=== PATIENT | female | born 1955 | race Caucasian/White ===

== ENCOUNTER 2022-02-21 22:52 | Emergency (ER) | payer MEDICARE, BC ==
[2022-02-21 23:39] VITALS: BP 143/64; PULSE 88
== END 2022-02-21 23:26 | disposition home or self-care (01) ==
LOC: VM.ED 22:52
DX: S63.602A Unspecified sprain of left thumb, initial encounter (principal); E78.00 Pure hypercholesterolemia, unspecified; E11.9 Type 2 diabetes mellitus without complications; E03.9 Hypothyroidism, unspecified; I10 Essential (primary) hypertension; Z79.4 Long term (current) use of insulin; Z79.899 Other long term (current) drug therapy; X50.9XXA Other and unspecified overexertion or strenuous movements or postures, initial encounter
CPT/HCPCS: 73120-LT; 99283; 99283-25

== ENCOUNTER 2022-03-27 13:29 | Emergency (ER) | payer MEDICARE, BC ==
[2022-03-27] MEDS ORDERED: Lidocaine 1% 30 ML SDV INJECT ONE (13:33)
[2022-03-27 13:41] VITALS: BP 126/52; PULSE 84
== END 2022-03-27 15:02 | disposition home or self-care (01) ==
LOC: VM.ED 13:29
DX: S01.01XA Laceration without foreign body of scalp, initial encounter (principal); E78.00 Pure hypercholesterolemia, unspecified; E03.9 Hypothyroidism, unspecified; I10 Essential (primary) hypertension; E11.9 Type 2 diabetes mellitus without complications; Z88.8 Allergy status to other drugs, medicaments and biological substances; Z79.4 Long term (current) use of insulin; Z79.82 Long term (current) use of aspirin; Z79.899 Other long term (current) drug therapy; W19.XXXA Unspecified fall, initial encounter
CPT/HCPCS: 12002; 70450; 99283

== ENCOUNTER 2023-06-22 01:11 | Inpatient (IN) | payer MEDICARE, BC ==
[2023-06-22] MEDS ORDERED: Miconazole 2% Top Powder 45 GM Container TOP ONE (01:45)
[2023-06-22] MEDS ORDERED: Acetaminophen/HYDROcodone 325-10 MG Tab PO ONE (01:59)
[2023-06-22] MEDS ORDERED: Docusate Sodium 100 MG Cap PO PRN (03:54)
[2023-06-22] MEDS ORDERED: SEMAGLUTIDE 0.25 MG/0.4 ML SQ SCH (04:00)
[2023-06-22 04:24] LABS: BASOPHILS PERCENT AUTO 0.2 % (0.2-1.2); EOSINOPHILS ABSOLUTE AUTO 0.1 x10^3/uL (0.0-0.5); EOSINOPHILS PERCENT AUTO 0.5 % (0.0-4.0); HEMATOCRIT 38.4 % (33.0-47.0); HEMOGLOBIN 12.1 g/dL (12.0-16.0); IMMATURE GRAN ABSOLUTE AUTO 0.01 x10^3/uL (0.00-0.07); LYMPHOCYTES PERCENT AUTO 5.1 % (25.0-50.0); MEAN CORPUSCULAR HEMOGLOBIN 29.7 pg (26.0-32.0); MEAN CORPUSCULAR HGB CONC 31.5 g/dL (32.0-36.0); MEAN CORPUSCULAR VOLUME 94.1 fL (78.0-93.0); MONOCYTES ABSOLUTE AUTO 0.8 x10^3/uL (0.0-0.8); MONOCYTES PERCENT AUTO 8.3 % (2.0-11.0); NEUTROPHILS ABSOLUTE AUTO 7.9 x10^3/uL (1.8-7.7); NEUTROPHILS PERCENT AUTO 85.8 % (50.0-80.0); PLATELET COUNT,PLT 243 x10^3/uL (130-400); RED BLOOD CELL COUNT 4.08 x10^6/uL (4.00-5.50); WHITE BLOOD CELL COUNT,WBC 9.3 x10^3/uL (4.0-10.0)
[2023-06-22 04:41] LABS: LYMPHOCYTES ABSOLUTE AUTO 0.5 x10^3/uL (1.0-4.8)
[2023-06-22 04:44] LABS: A/G RATIO 0.64; ALBUMIN 2.8 g/dL (3.4-5.0); BILIRUBIN TOTAL 0.9 mg/dL (0.2-1.0); CALCIUM 8.8 mg/dL (8.5-10.1); CREATININE 1.2 mg/dL (0.55-1.02); POTASSIUM,K 3.7 mmol/L (3.5-5.1); PROTEIN TOTAL,TP 7.2 g/dL (6.4-8.2)
[2023-06-22 04:51] LABS: ANION GAP 14.7 mmol/L (5-15)
[2023-06-22 04:53] LABS: INR 0.9 (0.9-1.1); PROTHROMBIN TIME 10.1 SEC (9.5-12.2)
[2023-06-22 06:16] LABS: APPEARANCE,URINE CLEAR (CLEAR); BILIRUBIN,URINE NEGATIVE (NEGATIVE); COLOR,URINE YELLOW (YELLOW); GLUCOSE,URINE NEGATIVE (NEGATIVE); KETONES,URINE NEGATIVE (NEGATIVE); LEUKOCYTE ESTERASE,URINE NEGATIVE (NEGATIVE); NITRITE,URINE POSITIVE (NEGATIVE); OCCULT BLOOD,URINE SMALL (NEGATIVE); PH,URINE 5.5 (5.0-8.0); PROTEIN,URINE 30 mg/dL (NEGATIVE); UROBILINOGEN,URINE 0.2 EU/dL (0.2)
[2023-06-22 06:25] LABS: RBC,URINE 0-5 /HPF (NOT SEEN)
[2023-06-22 06:26] LABS: BACTERIA,URINE MANY /HPF (NOT SEEN); MUCUS,URINE NOT SEEN /LPF (NOT SEEN); SQUAMOUS EPITHELIAL CELLS,UR RARE /HPF (NOT SEEN)
[2023-06-22] MEDS ORDERED: Sodium Chloride 0.9% 10 ML Syringe FLUSH PRN (07:00)
[2023-06-22] MEDS ORDERED: cefTRIAXone 2 GM Vial IVPUSH ONE (07:02)
[2023-06-22] MEDS ORDERED: Sodium Chloride 0.9% 1,000 ML IV SCH (07:15)
[2023-06-22] MEDS: Aspirin 81 MG Tab.Chew PO SCH (08:14)
[2023-06-22] MEDS: Acetaminophen/HYDROcodone 325-10 MG Tab PO PRN ×2 (08:15→20:26)
[2023-06-22] MEDS: Lisinopril 20 MG Tab PO SCH (08:16)
[2023-06-22] MEDS: Levothyroxine 88 MCG Tab PO SCH (08:16)
[2023-06-22] MEDS: Insulin Glarg,Human.Rec.Analog 100 Unit/ML 10 ML Vial SUBCUT SCH (08:18)
[2023-06-22] MEDS ORDERED: Hydrochlorothiazide 12.5 MG Cap PO SCH (09:00)
[2023-06-22] MEDS ORDERED: Rosuvastatin 20 MG Tab PO SCH (09:00)
[2023-06-22] MEDS: cefTRIAXone 1 GM Vial IVPUSH SCH (10:23)
[2023-06-22] MEDS: Enoxaparin 40 MG/0.4 ML Syringe SUBCUT SCH (10:42)
[2023-06-22] MEDS: Nystatin Crm 30 GM Tube TOP SCH ×2 (10:43→20:36)
[2023-06-22] MEDS: Fluconazole 100 MG Tab PO SCH (10:44)
[2023-06-22] MEDS: Carbidopa/Levodopa 10-100 MG Tab PO SCH ×4 (10:46→21:59)
[2023-06-22 14:21] LABS: CORONAVIRUS COVID-19 NAA POSITIVE (NEGATIVE); INFLUENZA A NAA NEGATIVE (NEGATIVE); INFLUENZA B NAA NEGATIVE (NEGATIVE); RESPIRATORY SYNCYTIAL VIR NAA NEGATIVE (NEGATIVE)
[2023-06-22] MEDS ORDERED: Sodium Chloride 0.9% 500 ML IV ONE (20:42)
[2023-06-22] MEDS: Acetaminophen 325 MG Tab PO PRN (20:49)
[2023-06-23 06:56] LABS: BASOPHILS PERCENT AUTO 0.6 % (0.2-1.2); EOSINOPHILS ABSOLUTE AUTO 0.1 x10^3/uL (0.0-0.5); EOSINOPHILS PERCENT AUTO 0.8 % (0.0-4.0); HEMATOCRIT 32.6 % (33.0-47.0); HEMOGLOBIN 10.4 g/dL (12.0-16.0); IMMATURE GRAN ABSOLUTE AUTO 0.01 x10^3/uL (0.00-0.07); LYMPHOCYTES ABSOLUTE AUTO 1.1 x10^3/uL (1.0-4.8); LYMPHOCYTES PERCENT AUTO 15.8 % (25.0-50.0); MEAN CORPUSCULAR HEMOGLOBIN 29.9 pg (26.0-32.0); MEAN CORPUSCULAR HGB CONC 31.9 g/dL (32.0-36.0); MEAN CORPUSCULAR VOLUME 93.7 fL (78.0-93.0); MONOCYTES ABSOLUTE AUTO 0.9 x10^3/uL (0.0-0.8); MONOCYTES PERCENT AUTO 12.7 % (2.0-11.0); NEUTROPHILS ABSOLUTE AUTO 5.1 x10^3/uL (1.8-7.7); PLATELET COUNT,PLT 213 x10^3/uL (130-400); RED BLOOD CELL COUNT 3.48 x10^6/uL (4.00-5.50); WHITE BLOOD CELL COUNT,WBC 7.2 x10^3/uL (4.0-10.0)
[2023-06-23 07:05] LABS: CALCIUM 8.4 mg/dL (8.5-10.1); CREATININE 1.2 mg/dL (0.55-1.02); POTASSIUM,K 3.6 mmol/L (3.5-5.1)
[2023-06-23 07:08] LABS: ANION GAP 10.6 mmol/L (5-15)
[2023-06-23] MEDS: cefTRIAXone 1 GM Vial IVPUSH SCH (09:14)
[2023-06-23] MEDS: Nystatin Crm 30 GM Tube TOP SCH ×2 (09:14→21:09)
[2023-06-23] MEDS: Fluconazole 100 MG Tab PO SCH (09:14)
[2023-06-23] MEDS: Aspirin 81 MG Tab.Chew PO SCH (09:15)
[2023-06-23] MEDS: Carbidopa/Levodopa 10-100 MG Tab PO SCH ×4 (09:15→21:06)
[2023-06-23] MEDS: Lisinopril 20 MG Tab PO SCH (09:16)
[2023-06-23] MEDS: Levothyroxine 88 MCG Tab PO SCH (09:16)
[2023-06-23] MEDS: dexAMETHasone 2 MG, dexAMETHasone 4 MG PO SCH ×2 (09:40)
[2023-06-23] MEDS: Insulin Glarg,Human.Rec.Analog 100 Unit/ML 10 ML Vial SUBCUT SCH (09:41)
[2023-06-23] MEDS: Rosuvastatin 20 MG Tab PO SCH (09:44)
[2023-06-23] MEDS: Enoxaparin 40 MG/0.4 ML Syringe SUBCUT SCH (09:44)
[2023-06-23] MEDS: Acetaminophen 325 MG Tab PO PRN ×2 (11:50→21:06)
[2023-06-24 06:55] LABS: HEMATOCRIT 35.8 % (33.0-47.0); HEMOGLOBIN 11.6 g/dL (12.0-16.0); IMMATURE GRAN ABSOLUTE AUTO 0.01 x10^3/uL (0.00-0.07); LYMPHOCYTES ABSOLUTE AUTO 0.7 x10^3/uL (1.0-4.8); LYMPHOCYTES PERCENT AUTO 8.8 % (25.0-50.0); MEAN CORPUSCULAR HEMOGLOBIN 29.7 pg (26.0-32.0); MEAN CORPUSCULAR HGB CONC 32.4 g/dL (32.0-36.0); MEAN CORPUSCULAR VOLUME 91.8 fL (78.0-93.0); MONOCYTES ABSOLUTE AUTO 0.6 x10^3/uL (0.0-0.8); MONOCYTES PERCENT AUTO 8.5 % (2.0-11.0); NEUTROPHILS ABSOLUTE AUTO 6.2 x10^3/uL (1.8-7.7); NEUTROPHILS PERCENT AUTO 82.6 % (50.0-80.0); PLATELET COUNT,PLT 236 x10^3/uL (130-400); WHITE BLOOD CELL COUNT,WBC 7.5 x10^3/uL (4.0-10.0)
[2023-06-24 07:19] LABS: A/G RATIO 0.54; ALBUMIN 2.5 g/dL (3.4-5.0); BILIRUBIN TOTAL 0.4 mg/dL (0.2-1.0); EST CRCL DRUG DOSING (CG) 50.41 mL/min; POTASSIUM,K 4.9 mmol/L (3.5-5.1); PROTEIN TOTAL,TP 7.1 g/dL (6.4-8.2)
[2023-06-24 07:20] LABS: ANION GAP 12.9 mmol/L (5-15)
[2023-06-24] MEDS: Aspirin 81 MG Tab.Chew PO SCH (09:02)
[2023-06-24] MEDS: Rosuvastatin 20 MG Tab PO SCH (09:02)
[2023-06-24] MEDS: Lisinopril 20 MG Tab PO SCH (09:03)
[2023-06-24] MEDS: Carbidopa/Levodopa 10-100 MG Tab PO SCH ×3 (09:04→21:06)
[2023-06-24] MEDS: Levothyroxine 88 MCG Tab PO SCH (09:04)
[2023-06-24] MEDS: dexAMETHasone 2 MG, dexAMETHasone 4 MG PO SCH ×2 (09:05)
[2023-06-24] MEDS: Fluconazole 100 MG Tab PO SCH (09:06)
[2023-06-24] MEDS: Insulin Glarg,Human.Rec.Analog 100 Unit/ML 10 ML Vial SUBCUT SCH (09:07)
[2023-06-24] MEDS: Nystatin Crm 30 GM Tube TOP SCH ×2 (09:09→21:06)
[2023-06-24] MEDS: Enoxaparin 40 MG/0.4 ML Syringe SUBCUT SCH (09:10)
[2023-06-24] MEDS: cefTRIAXone 1 GM Vial IVPUSH SCH (09:10)
[2023-06-24] MEDS: Sennosides/Docusate Sodium 50-8.6 MG Tab PO SCH ×2 (13:11→21:05)
[2023-06-24] MEDS: Acetaminophen 325 MG Tab PO PRN (21:05)
[2023-06-24] MEDS ORDERED: Glucagon,Human Recombinant 1 MG Vial IM PRN (21:19)
[2023-06-24] MEDS ORDERED: 50% Dextrose in Water 50 ML Syringe IVPUSH PRN (21:19)
[2023-06-24] MEDS ORDERED: Labetalol 20 MG/4 ML Syringe IVPUSH STA (21:19)
[2023-06-24] MEDS ORDERED: Insulin Glarg,Human.Rec.Analog 100 Unit/ML 10 ML Vial SUBCUT SCH (21:20)
[2023-06-25 06:08] VITALS: PULSE 71
[2023-06-25] MEDS ORDERED: Hydrochlorothiazide 25 MG Tab PO ONE (06:15)
[2023-06-25] MEDS: Lisinopril 20 MG Tab PO SCH ×2 (06:31→10:00)
[2023-06-25 06:32] VITALS: BP 194/84
[2023-06-25] MEDS: Acetaminophen 325 MG Tab PO PRN (06:32)
[2023-06-25] MEDS ORDERED: Amoxicillin/Clavulanate K 875-125 MG Tab PO SCH ×2 (07:00→08:00)
[2023-06-25] MEDS ORDERED: Glucagon,Human Recombinant 1 MG Vial IM PRN (08:18)
[2023-06-25] MEDS ORDERED: Insulin Lispro 100 Units/ML 3 ML Vial SUBCUT SCH ×3 (08:18→09:33)
[2023-06-25] MEDS ORDERED: 50% Dextrose in Water 50 ML Syringe IVPUSH PRN (08:18)
[2023-06-25] MEDS ORDERED: Propranolol 20 MG Tab PO SCH (08:30)
[2023-06-25] MEDS: Sennosides/Docusate Sodium 50-8.6 MG Tab PO SCH (09:09)
[2023-06-25] MEDS: Aspirin 81 MG Tab.Chew PO SCH (09:09)
[2023-06-25] MEDS: Carbidopa/Levodopa 10-100 MG Tab PO SCH (09:09)
[2023-06-25] MEDS: Levothyroxine 88 MCG Tab PO SCH (09:11)
[2023-06-25] MEDS: dexAMETHasone 2 MG, dexAMETHasone 4 MG PO SCH ×2 (09:11)
[2023-06-25] MEDS: Fluconazole 100 MG Tab PO SCH (09:12)
[2023-06-25] MEDS: Enoxaparin 40 MG/0.4 ML Syringe SUBCUT SCH (09:12)
[2023-06-25] MEDS: Insulin Glarg,Human.Rec.Analog 100 Unit/ML 10 ML Vial SUBCUT SCH (09:14)
[2023-06-25] MEDS: Rosuvastatin 20 MG Tab PO SCH (09:16)
[2023-06-25] MEDS ORDERED: Miconazole 2% Top Powder 45 GM Container TOP SCH (21:00)
[2023-06-26] MEDS ORDERED: Hydrochlorothiazide 25 MG Tab PO SCH (09:00)
== END 2023-06-25 10:44 | disposition swing bed (61) | DRG 689 ==
LOC: VM.ED 01:11 → VM.MS 03:35 → OBSVTOIN 08:39
PROVIDERS: ADMIT Internal Medicine; ATTEND Internal Medicine
PROC: 8E0ZXY6 Isolation (ICD-10-PCS; principal; 2023-06-22)
PROC: 3E0DX3Z Introduction of Anti-inflammatory into Mouth and Pharynx, External Approach (ICD-10-PCS; 2023-06-22)
DX: N39.0 Urinary tract infection, site not specified (principal); U07.1 COVID-19; N17.9 Acute kidney failure, unspecified; Z68.42 Body mass index [BMI] 45.0-49.9, adult; I10 Essential (primary) hypertension; E11.65 Type 2 diabetes mellitus with hyperglycemia; E66.01 Morbid (severe) obesity due to excess calories; B96.20 Unspecified Escherichia coli [E. coli] as the cause of diseases classified elsewhere; E78.5 Hyperlipidemia, unspecified; E03.9 Hypothyroidism, unspecified; G20.C Parkinsonism, unspecified; R25.1 Tremor, unspecified; M17.0 Bilateral primary osteoarthritis of knee; Z88.8 Allergy status to other drugs, medicaments and biological substances; Z79.890 Hormone replacement therapy; Z79.4 Long term (current) use of insulin
CPT/HCPCS: 0241U; 36415; 71045; 73560-LT; 73560-RT; 73700; 80048; 80053; 81001; 82550; 82947; 83735; 84443; 85025; 85610; 85730; 87086; 87088; 87186; 95851-GO; 97116-GP; 97161-GP; 97165-GO; 97530-GO; 97535-GO; 99285; A9270-GY; J0696; J1650; J1815-GY; J3490; J7030; J8540

== ENCOUNTER 2023-06-25 10:45 | Inpatient (IN) | payer MEDICARE, BC ==
[~2023-06-25 10:45] MED LIST: 50% Dextrose in Water 50 ML Syringe IVPUSH PRN; Diclofenac Sodium 1% Gel 100 GM Tube TOP PRN; Glucagon,Human Recombinant 1 MG Vial IM PRN
[2023-06-25] MEDS: Insulin Lispro 100 Units/ML 3 ML Vial SUBCUT SCH ×2 (13:02→17:50)
[2023-06-25] MEDS: Carbidopa/Levodopa 10-100 MG Tab PO SCH ×2 (13:05→20:44)
[2023-06-25] MEDS: Propranolol 20 MG Tab PO SCH (17:50)
[2023-06-25] MEDS ORDERED: Amoxicillin/Clavulanate K 875-125 MG Tab PO SCH (18:00)
[2023-06-25] MEDS: Acetaminophen 325 MG Tab PO PRN (20:43)
[2023-06-25] MEDS: Sennosides/Docusate Sodium 50-8.6 MG Tab PO SCH (20:43)
[2023-06-25] MEDS: Miconazole 2% Top Powder 45 GM Container TOP SCH (20:50)
[2023-06-26] MEDS: Propranolol 20 MG Tab PO SCH ×4 (00:45→21:05)
[2023-06-26] MEDS: Insulin Lispro 100 Units/ML 3 ML Vial SUBCUT SCH ×3 (08:42→18:24)
[2023-06-26] MEDS: Aspirin 81 MG Tab.Chew PO SCH (08:43)
[2023-06-26] MEDS: Insulin Glarg,Human.Rec.Analog 100 Unit/ML 10 ML Vial SUBCUT SCH (08:43)
[2023-06-26] MEDS: Levothyroxine 88 MCG Tab PO SCH (08:44)
[2023-06-26] MEDS: Sennosides/Docusate Sodium 50-8.6 MG Tab PO SCH ×2 (08:44→21:05)
[2023-06-26] MEDS: Hydrochlorothiazide 25 MG Tab PO SCH (08:46)
[2023-06-26] MEDS: Rosuvastatin 20 MG Tab PO SCH (08:46)
[2023-06-26] MEDS: Fluconazole 100 MG Tab PO SCH (08:46)
[2023-06-26] MEDS: Miconazole 2% Top Powder 45 GM Container TOP SCH ×2 (08:47→21:05)
[2023-06-26] MEDS: Carbidopa/Levodopa 10-100 MG Tab PO SCH ×3 (08:47→21:05)
[2023-06-26] MEDS: Lisinopril 20 MG Tab PO SCH (08:48)
[2023-06-26] MEDS: Docusate Sodium 100 MG Cap PO PRN (08:57)
[2023-06-26] MEDS ORDERED: Polyethylene Glycol 3350 Powder 17 GM Packet PO PRN (14:23)
[2023-06-27] MEDS: Propranolol 20 MG Tab PO SCH ×3 (06:38→21:24)
[2023-06-27] MEDS: Insulin Lispro 100 Units/ML 3 ML Vial SUBCUT SCH ×3 (09:12→18:25)
[2023-06-27] MEDS: Insulin Glarg,Human.Rec.Analog 100 Unit/ML 10 ML Vial SUBCUT SCH (09:13)
[2023-06-27] MEDS: Carbidopa/Levodopa 10-100 MG Tab PO SCH ×3 (09:14→21:06)
[2023-06-27] MEDS: Sennosides/Docusate Sodium 50-8.6 MG Tab PO SCH ×2 (09:14→21:06)
[2023-06-27] MEDS: Docusate Sodium 100 MG Cap PO PRN (09:14)
[2023-06-27] MEDS: Hydrochlorothiazide 25 MG Tab PO SCH (09:14)
[2023-06-27] MEDS: Levothyroxine 88 MCG Tab PO SCH (09:14)
[2023-06-27] MEDS: Fluconazole 100 MG Tab PO SCH (09:14)
[2023-06-27] MEDS: Rosuvastatin 20 MG Tab PO SCH (09:14)
[2023-06-27] MEDS: Lisinopril 20 MG Tab PO SCH (09:14)
[2023-06-27] MEDS: Miconazole 2% Top Powder 45 GM Container TOP SCH ×2 (09:15→21:09)
[2023-06-27] MEDS: Aspirin 81 MG Tab.Chew PO SCH (09:16)
[2023-06-27] MEDS: Acetaminophen 325 MG Tab PO PRN (09:20)
[2023-06-28] MEDS: Propranolol 20 MG Tab PO SCH ×3 (05:32→22:09)
[2023-06-28] MEDS: Rosuvastatin 20 MG Tab PO SCH (08:54)
[2023-06-28] MEDS: Levothyroxine 88 MCG Tab PO SCH (08:54)
[2023-06-28] MEDS: Fluconazole 100 MG Tab PO SCH (08:54)
[2023-06-28] MEDS: Carbidopa/Levodopa 10-100 MG Tab PO SCH ×3 (08:54→21:26)
[2023-06-28] MEDS: Aspirin 81 MG Tab.Chew PO SCH (08:55)
[2023-06-28] MEDS: Miconazole 2% Top Powder 45 GM Container TOP SCH ×2 (08:55→21:28)
[2023-06-28] MEDS: Lisinopril 20 MG Tab PO SCH (08:56)
[2023-06-28] MEDS: Hydrochlorothiazide 25 MG Tab PO SCH (08:56)
[2023-06-28] MEDS: Sennosides/Docusate Sodium 50-8.6 MG Tab PO SCH ×2 (09:02→21:26)
[2023-06-28] MEDS: Insulin Lispro 100 Units/ML 3 ML Vial SUBCUT SCH ×3 (09:07→18:13)
[2023-06-28] MEDS: Insulin Glarg,Human.Rec.Analog 100 Unit/ML 10 ML Vial SUBCUT SCH (09:07)
[2023-06-29] MEDS: Propranolol 20 MG Tab PO SCH ×3 (05:32→21:06)
[2023-06-29 06:53] LABS: BASOPHILS PERCENT AUTO 0.1 % (0.2-1.2); EOSINOPHILS ABSOLUTE AUTO 0.5 x10^3/uL (0.0-0.5); EOSINOPHILS PERCENT AUTO 5.5 % (0.0-4.0); HEMATOCRIT 35.1 % (33.0-47.0); HEMOGLOBIN 11.3 g/dL (12.0-16.0); IMMATURE GRAN ABSOLUTE AUTO 0.03 x10^3/uL (0.00-0.07); LYMPHOCYTES ABSOLUTE AUTO 1.5 x10^3/uL (1.0-4.8); LYMPHOCYTES PERCENT AUTO 15.9 % (25.0-50.0); MEAN CORPUSCULAR HEMOGLOBIN 29.7 pg (26.0-32.0); MEAN CORPUSCULAR HGB CONC 32.2 g/dL (32.0-36.0); MEAN CORPUSCULAR VOLUME 92.4 fL (78.0-93.0); MONOCYTES ABSOLUTE AUTO 0.8 x10^3/uL (0.0-0.8); MONOCYTES PERCENT AUTO 9.1 % (2.0-11.0); NEUTROPHILS ABSOLUTE AUTO 6.4 x10^3/uL (1.8-7.7); NEUTROPHILS PERCENT AUTO 69.1 % (50.0-80.0); PLATELET COUNT,PLT 252 x10^3/uL (130-400); WHITE BLOOD CELL COUNT,WBC 9.3 x10^3/uL (4.0-10.0)
[2023-06-29 07:00] LABS: CALCIUM 8.1 mg/dL (8.5-10.1); CREATININE 1.1 mg/dL (0.55-1.02); EST CRCL DRUG DOSING (CG) 45.82 mL/min; POTASSIUM,K 4.3 mmol/L (3.5-5.1)
[2023-06-29 07:01] LABS: ANION GAP 10.3 mmol/L (5-15)
[2023-06-29] MEDS: Carbidopa/Levodopa 10-100 MG Tab PO SCH ×3 (09:28→21:05)
[2023-06-29] MEDS: Acetaminophen 325 MG Tab PO PRN (09:28)
[2023-06-29] MEDS: Rosuvastatin 20 MG Tab PO SCH (09:28)
[2023-06-29] MEDS: Aspirin 81 MG Tab.Chew PO SCH (09:28)
[2023-06-29] MEDS: Levothyroxine 88 MCG Tab PO SCH (09:29)
[2023-06-29] MEDS: Miconazole 2% Top Powder 45 GM Container TOP SCH ×2 (09:29→21:06)
[2023-06-29] MEDS: Lisinopril 5 MG Tab PO SCH (09:29)
[2023-06-29] MEDS: Fluconazole 100 MG Tab PO SCH (09:29)
[2023-06-29] MEDS: Insulin Glarg,Human.Rec.Analog 100 Unit/ML 10 ML Vial SUBCUT SCH (09:30)
[2023-06-29] MEDS: Insulin Lispro 100 Units/ML 3 ML Vial SUBCUT SCH (09:31)
[2023-06-29] MEDS: Sennosides/Docusate Sodium 50-8.6 MG Tab PO SCH ×2 (09:32→21:06)
[2023-06-30] MEDS: Propranolol 20 MG Tab PO SCH ×3 (06:48→21:09)
[2023-06-30] MEDS: Lisinopril 5 MG Tab PO SCH (09:32)
[2023-06-30] MEDS: Levothyroxine 88 MCG Tab PO SCH (09:32)
[2023-06-30] MEDS: Aspirin 81 MG Tab.Chew PO SCH (09:32)
[2023-06-30] MEDS: Carbidopa/Levodopa 10-100 MG Tab PO SCH ×3 (09:33→20:38)
[2023-06-30] MEDS: Rosuvastatin 20 MG Tab PO SCH (09:33)
[2023-06-30] MEDS: Insulin Glarg,Human.Rec.Analog 100 Unit/ML 10 ML Vial SUBCUT SCH (09:35)
[2023-06-30] MEDS: Miconazole 2% Top Powder 45 GM Container TOP SCH ×2 (09:36→20:37)
[2023-07-01] MEDS: Propranolol 20 MG Tab PO SCH ×3 (06:29→21:07)
[2023-07-01 07:00] LABS: BASOPHILS PERCENT AUTO 0.2 % (0.2-1.2); EOSINOPHILS ABSOLUTE AUTO 0.4 x10^3/uL (0.0-0.5); HEMATOCRIT 33.4 % (33.0-47.0); HEMOGLOBIN 10.6 g/dL (12.0-16.0); IMMATURE GRAN ABSOLUTE AUTO 0.04 x10^3/uL (0.00-0.07); LYMPHOCYTES ABSOLUTE AUTO 1.5 x10^3/uL (1.0-4.8); LYMPHOCYTES PERCENT AUTO 11.7 % (25.0-50.0); MEAN CORPUSCULAR HEMOGLOBIN 29.6 pg (26.0-32.0); MEAN CORPUSCULAR HGB CONC 31.7 g/dL (32.0-36.0); MEAN CORPUSCULAR VOLUME 93.3 fL (78.0-93.0); MONOCYTES ABSOLUTE AUTO 0.9 x10^3/uL (0.0-0.8); MONOCYTES PERCENT AUTO 7.4 % (2.0-11.0); NEUTROPHILS ABSOLUTE AUTO 9.7 x10^3/uL (1.8-7.7); NEUTROPHILS PERCENT AUTO 77.4 % (50.0-80.0); PLATELET COUNT,PLT 246 x10^3/uL (130-400); RED BLOOD CELL COUNT 3.58 x10^6/uL (4.00-5.50); WHITE BLOOD CELL COUNT,WBC 12.5 x10^3/uL (4.0-10.0)
[2023-07-01 07:10] LABS: CALCIUM 8.3 mg/dL (8.5-10.1); CREATININE 1.2 mg/dL (0.55-1.02)
[2023-07-01] MEDS: Aspirin 81 MG Tab.Chew PO SCH (09:44)
[2023-07-01] MEDS: Carbidopa/Levodopa 10-100 MG Tab PO SCH ×3 (09:44→21:06)
[2023-07-01] MEDS: Rosuvastatin 20 MG Tab PO SCH (09:45)
[2023-07-01] MEDS: Levothyroxine 88 MCG Tab PO SCH (09:45)
[2023-07-01] MEDS: Lisinopril 5 MG Tab PO SCH (09:47)
[2023-07-01] MEDS: Insulin Glarg,Human.Rec.Analog 100 Unit/ML 10 ML Vial SUBCUT SCH (09:48)
[2023-07-01] MEDS: Miconazole 2% Top Powder 45 GM Container TOP SCH ×2 (09:49→21:06)
[2023-07-02] MEDS: Acetaminophen 325 MG Tab PO PRN (00:14)
[2023-07-02] MEDS: Propranolol 20 MG Tab PO SCH ×3 (06:05→21:21)
[2023-07-02] MEDS: Aspirin 81 MG Tab.Chew PO SCH (08:18)
[2023-07-02] MEDS: Levothyroxine 88 MCG Tab PO SCH (08:18)
[2023-07-02] MEDS: Lisinopril 5 MG Tab PO SCH (08:19)
[2023-07-02] MEDS: Carbidopa/Levodopa 10-100 MG Tab PO SCH ×3 (08:20→21:20)
[2023-07-02] MEDS: Miconazole 2% Top Powder 45 GM Container TOP SCH ×2 (08:21→21:20)
[2023-07-02] MEDS: Rosuvastatin 20 MG Tab PO SCH (08:21)
[2023-07-02] MEDS: Insulin Glarg,Human.Rec.Analog 100 Unit/ML 10 ML Vial SUBCUT SCH (08:22)
[2023-07-03] MEDS: Propranolol 20 MG Tab PO SCH ×2 (06:26→21:10)
[2023-07-03] MEDS: Carbidopa/Levodopa 10-100 MG Tab PO SCH ×3 (08:05→21:10)
[2023-07-03] MEDS: Rosuvastatin 20 MG Tab PO SCH (08:05)
[2023-07-03] MEDS: Aspirin 81 MG Tab.Chew PO SCH (08:05)
[2023-07-03] MEDS: Levothyroxine 88 MCG Tab PO SCH (08:05)
[2023-07-03] MEDS: Lisinopril 5 MG Tab PO SCH (08:06)
[2023-07-03] MEDS: Miconazole 2% Top Powder 45 GM Container TOP SCH ×2 (08:06→21:11)
[2023-07-03] MEDS: Insulin Glarg,Human.Rec.Analog 100 Unit/ML 10 ML Vial SUBCUT SCH (08:09)
[2023-07-03] MEDS: Acetaminophen 325 MG Tab PO PRN (21:10)
[2023-07-04] MEDS: Aspirin 81 MG Tab.Chew PO SCH (09:29)
[2023-07-04] MEDS: Propranolol 20 MG Tab PO SCH ×2 (09:29→20:03)
[2023-07-04] MEDS: Levothyroxine 88 MCG Tab PO SCH (09:29)
[2023-07-04] MEDS: Carbidopa/Levodopa 10-100 MG Tab PO SCH ×3 (09:29→20:03)
[2023-07-04] MEDS: Rosuvastatin 20 MG Tab PO SCH (09:29)
[2023-07-04] MEDS: Miconazole 2% Top Powder 45 GM Container TOP SCH ×2 (09:30→20:03)
[2023-07-04] MEDS: Insulin Glarg,Human.Rec.Analog 100 Unit/ML 10 ML Vial SUBCUT SCH (09:30)
[2023-07-04] MEDS: Lisinopril 5 MG Tab PO SCH (09:31)
[2023-07-05] MEDS: Rosuvastatin 20 MG Tab PO SCH (08:44)
[2023-07-05] MEDS: Carbidopa/Levodopa 10-100 MG Tab PO SCH ×3 (08:44→21:30)
[2023-07-05] MEDS: Aspirin 81 MG Tab.Chew PO SCH (08:44)
[2023-07-05] MEDS: Propranolol 20 MG Tab PO SCH ×2 (08:45→21:30)
[2023-07-05] MEDS: Levothyroxine 88 MCG Tab PO SCH (08:45)
[2023-07-05] MEDS: Insulin Glarg,Human.Rec.Analog 100 Unit/ML 10 ML Vial SUBCUT SCH (08:46)
[2023-07-05] MEDS: Miconazole 2% Top Powder 45 GM Container TOP SCH ×2 (08:46→21:30)
[2023-07-05] MEDS: Lisinopril 5 MG Tab PO SCH (08:47)
[2023-07-06 07:08] LABS: BASOPHILS PERCENT AUTO 0.2 % (0.2-1.2); EOSINOPHILS ABSOLUTE AUTO 0.4 x10^3/uL (0.0-0.5); EOSINOPHILS PERCENT AUTO 3.4 % (0.0-4.0); HEMATOCRIT 33.3 % (33.0-47.0); HEMOGLOBIN 10.2 g/dL (12.0-16.0); IMMATURE GRAN ABSOLUTE AUTO 0.02 x10^3/uL (0.00-0.07); LYMPHOCYTES ABSOLUTE AUTO 1.4 x10^3/uL (1.0-4.8); LYMPHOCYTES PERCENT AUTO 13.7 % (25.0-50.0); MEAN CORPUSCULAR HEMOGLOBIN 29.2 pg (26.0-32.0); MEAN CORPUSCULAR HGB CONC 30.6 g/dL (32.0-36.0); MEAN CORPUSCULAR VOLUME 95.4 fL (78.0-93.0); MONOCYTES ABSOLUTE AUTO 0.8 x10^3/uL (0.0-0.8); MONOCYTES PERCENT AUTO 7.6 % (2.0-11.0); NEUTROPHILS ABSOLUTE AUTO 7.7 x10^3/uL (1.8-7.7); NEUTROPHILS PERCENT AUTO 74.9 % (50.0-80.0); PLATELET COUNT,PLT 254 x10^3/uL (130-400); RED BLOOD CELL COUNT 3.49 x10^6/uL (4.00-5.50); WHITE BLOOD CELL COUNT,WBC 10.2 x10^3/uL (4.0-10.0)
[2023-07-06 07:16] LABS: EST CRCL DRUG DOSING (CG) 50.41 mL/min; POTASSIUM,K 4.9 mmol/L (3.5-5.1)
[2023-07-06 07:20] LABS: ANION GAP 10.9 mmol/L (5-15); CALCIUM 8.5 mg/dL (8.5-10.1)
[2023-07-06] MEDS: Propranolol 20 MG Tab PO SCH ×2 (09:16→22:48)
[2023-07-06] MEDS: Aspirin 81 MG Tab.Chew PO SCH (09:16)
[2023-07-06] MEDS: Levothyroxine 88 MCG Tab PO SCH (09:18)
[2023-07-06] MEDS: Rosuvastatin 20 MG Tab PO SCH (09:18)
[2023-07-06] MEDS: Lisinopril 5 MG Tab PO SCH (09:19)
[2023-07-06] MEDS: Acetaminophen 325 MG Tab PO PRN (09:19)
[2023-07-06] MEDS: Carbidopa/Levodopa 10-100 MG Tab PO SCH ×3 (09:19→22:48)
[2023-07-06] MEDS: Insulin Glarg,Human.Rec.Analog 100 Unit/ML 10 ML Vial SUBCUT SCH (09:22)
[2023-07-06] MEDS: Miconazole 2% Top Powder 45 GM Container TOP SCH ×2 (09:23→22:47)
[2023-07-06] MEDS: Docusate Sodium 100 MG Cap PO PRN (09:25)
[2023-07-07] MEDS: Carbidopa/Levodopa 10-100 MG Tab PO SCH ×3 (09:24→21:32)
[2023-07-07] MEDS: Insulin Glarg,Human.Rec.Analog 100 Unit/ML 10 ML Vial SUBCUT SCH (09:24)
[2023-07-07] MEDS: Rosuvastatin 20 MG Tab PO SCH (09:24)
[2023-07-07] MEDS: Propranolol 20 MG Tab PO SCH ×2 (09:24→21:32)
[2023-07-07] MEDS: Levothyroxine 88 MCG Tab PO SCH (09:24)
[2023-07-07] MEDS: Aspirin 81 MG Tab.Chew PO SCH (09:25)
[2023-07-07] MEDS: Lisinopril 5 MG Tab PO SCH (09:25)
[2023-07-07] MEDS: Acetaminophen 325 MG Tab PO PRN (17:39)
[2023-07-08] MEDS: Lisinopril 5 MG Tab PO SCH (09:04)
[2023-07-08] MEDS: Carbidopa/Levodopa 10-100 MG Tab PO SCH ×3 (09:05→20:43)
[2023-07-08] MEDS: Propranolol 20 MG Tab PO SCH ×2 (09:05→20:44)
[2023-07-08] MEDS: Insulin Glarg,Human.Rec.Analog 100 Unit/ML 10 ML Vial SUBCUT SCH (09:05)
[2023-07-08] MEDS: Aspirin 81 MG Tab.Chew PO SCH (09:05)
[2023-07-08] MEDS: Levothyroxine 88 MCG Tab PO SCH (09:05)
[2023-07-08] MEDS: Rosuvastatin 20 MG Tab PO SCH (09:05)
[2023-07-08] MEDS: Acetaminophen 325 MG Tab PO PRN ×3 (09:06→20:44)
[2023-07-08] MEDS: Docusate Sodium 100 MG Cap PO PRN (20:47)
[2023-07-09 06:43] LABS: BASOPHILS PERCENT AUTO 0.4 % (0.2-1.2); EOSINOPHILS ABSOLUTE AUTO 0.4 x10^3/uL (0.0-0.5); EOSINOPHILS PERCENT AUTO 4.2 % (0.0-4.0); HEMATOCRIT 32.7 % (33.0-47.0); HEMOGLOBIN 10.2 g/dL (12.0-16.0); IMMATURE GRAN ABSOLUTE AUTO 0.01 x10^3/uL (0.00-0.07); LYMPHOCYTES ABSOLUTE AUTO 1.3 x10^3/uL (1.0-4.8); LYMPHOCYTES PERCENT AUTO 15.7 % (25.0-50.0); MEAN CORPUSCULAR HEMOGLOBIN 29.2 pg (26.0-32.0); MEAN CORPUSCULAR HGB CONC 31.2 g/dL (32.0-36.0); MEAN CORPUSCULAR VOLUME 93.7 fL (78.0-93.0); MONOCYTES ABSOLUTE AUTO 0.7 x10^3/uL (0.0-0.8); MONOCYTES PERCENT AUTO 7.7 % (2.0-11.0); NEUTROPHILS PERCENT AUTO 71.9 % (50.0-80.0); PLATELET COUNT,PLT 246 x10^3/uL (130-400); RED BLOOD CELL COUNT 3.49 x10^6/uL (4.00-5.50); WHITE BLOOD CELL COUNT,WBC 8.4 x10^3/uL (4.0-10.0)
[2023-07-09 06:57] LABS: CALCIUM 8.4 mg/dL (8.5-10.1); CREATININE 0.9 mg/dL (0.55-1.02); POTASSIUM,K 4.6 mmol/L (3.5-5.1)
[2023-07-09 06:58] LABS: ANION GAP 10.6 mmol/L (5-15)
[2023-07-09] MEDS: Lisinopril 5 MG Tab PO SCH (08:15)
[2023-07-09] MEDS: Rosuvastatin 20 MG Tab PO SCH (08:15)
[2023-07-09] MEDS: Propranolol 20 MG Tab PO SCH ×2 (08:15→21:12)
[2023-07-09] MEDS: Carbidopa/Levodopa 10-100 MG Tab PO SCH ×3 (08:15→21:12)
[2023-07-09] MEDS: Levothyroxine 88 MCG Tab PO SCH (08:15)
[2023-07-09] MEDS: Aspirin 81 MG Tab.Chew PO SCH (08:15)
[2023-07-09] MEDS: Insulin Glarg,Human.Rec.Analog 100 Unit/ML 10 ML Vial SUBCUT SCH (08:16)
[2023-07-09] MEDS: Sennosides/Docusate Sodium 50-8.6 MG Tab PO SCH ×2 (08:39→21:12)
[2023-07-09] MEDS: Acetaminophen 325 MG Tab PO PRN (22:39)
[2023-07-10 06:54] VITALS: BP 104/53; PULSE 59
[2023-07-10] MEDS: Propranolol 20 MG Tab PO SCH (10:10)
[2023-07-10] MEDS: Rosuvastatin 20 MG Tab PO SCH (10:10)
[2023-07-10] MEDS: Aspirin 81 MG Tab.Chew PO SCH (10:10)
[2023-07-10] MEDS: Sennosides/Docusate Sodium 50-8.6 MG Tab PO SCH (10:10)
[2023-07-10] MEDS: Insulin Glarg,Human.Rec.Analog 100 Unit/ML 10 ML Vial SUBCUT SCH (10:11)
[2023-07-10] MEDS: Levothyroxine 88 MCG Tab PO SCH (10:12)
[2023-07-10] MEDS: Carbidopa/Levodopa 10-100 MG Tab PO SCH ×2 (10:12→13:13)
[2023-07-10] MEDS: Lisinopril 5 MG Tab PO SCH (10:13)
== END 2023-07-10 15:00 | disposition home health service (06) | DRG 948 ==
LOC: VM.MS 10:45
PROVIDERS: ADMIT Internal Medicine; ATTEND Internal Medicine
DX: R53.1 Weakness (principal); N39.0 Urinary tract infection, site not specified; Z68.42 Body mass index [BMI] 45.0-49.9, adult; B96.20 Unspecified Escherichia coli [E. coli] as the cause of diseases classified elsewhere; I10 Essential (primary) hypertension; E66.01 Morbid (severe) obesity due to excess calories; B37.2 Candidiasis of skin and nail; E78.5 Hyperlipidemia, unspecified; E03.9 Hypothyroidism, unspecified; G20.A1 Parkinson's disease without dyskinesia, without mention of fluctuations; M17.10 Unilateral primary osteoarthritis, unspecified knee; E11.65 Type 2 diabetes mellitus with hyperglycemia; Z79.4 Long term (current) use of insulin; Z79.899 Other long term (current) drug therapy
CPT/HCPCS: 36415; 80048; 82947; 84443; 85025; 95851-GO; 97110-GP; 97116-GP; 97530-GP; 97535-GO; A9270-GY; J1815-GY

== ENCOUNTER 2024-02-26 19:49 | Inpatient (IN) | payer MEDICARE, BC ==
[2024-02-26] MEDS ORDERED: Sodium Chloride 0.9% 10 ML Syringe FLUSH PRN (20:35)
[2024-02-26 20:48] LABS: BASOPHILS PERCENT AUTO 0.1 % (0.2-1.2); EOSINOPHILS ABSOLUTE AUTO 0.1 x10^3/uL (0.0-0.5); EOSINOPHILS PERCENT AUTO 0.8 % (0.0-4.0); HEMATOCRIT 38.6 % (33.0-47.0); HEMOGLOBIN 12.4 g/dL (12.0-16.0); IMMATURE GRAN ABSOLUTE AUTO 0.01 x10^3/uL (0.00-0.07); LYMPHOCYTES PERCENT AUTO 7.5 % (25.0-50.0); MEAN CORPUSCULAR HEMOGLOBIN 30.1 pg (26.0-32.0); MEAN CORPUSCULAR HGB CONC 32.1 g/dL (32.0-36.0); MEAN CORPUSCULAR VOLUME 93.7 fL (78.0-93.0); MONOCYTES ABSOLUTE AUTO 1.1 x10^3/uL (0.0-0.8); MONOCYTES PERCENT AUTO 8.1 % (2.0-11.0); NEUTROPHILS ABSOLUTE AUTO 11.5 x10^3/uL (1.8-7.7); NEUTROPHILS PERCENT AUTO 83.4 % (50.0-80.0); PLATELET COUNT,PLT 302 x10^3/uL (130-400); RED BLOOD CELL COUNT 4.12 x10^6/uL (4.00-5.50); WHITE BLOOD CELL COUNT,WBC 13.8 x10^3/uL (4.0-10.0)
[2024-02-26] MEDS: Sodium Chloride 0.9% 1,000 ML IV ONE (21:00)
[2024-02-26 21:11] LABS: A/G RATIO 0.49; ALBUMIN 2.5 g/dL (3.4-5.0); CALCIUM 8.9 mg/dL (8.5-10.1); EST CRCL DRUG DOSING (CG) 50.41 mL/min; PROTEIN TOTAL,TP 7.6 g/dL (6.4-8.2)
[2024-02-26 21:17] LABS: APPEARANCE,URINE SLIGHTLY CLOUDY (CLEAR); BILIRUBIN,URINE SMALL (NEGATIVE); COLOR,URINE YELLOW (YELLOW); GLUCOSE,URINE NEGATIVE (NEGATIVE); KETONES,URINE TRACE mg/dL (NEGATIVE); LEUKOCYTE ESTERASE,URINE SMALL (NEGATIVE); NITRITE,URINE NEGATIVE (NEGATIVE); OCCULT BLOOD,URINE MODERATE (NEGATIVE); PROTEIN,URINE 100 mg/dL (NEGATIVE)
[2024-02-26] MEDS: Ketorolac 30 MG/ML SDV IVPUSH ONE (21:23)
[2024-02-26 21:26] LABS: BACTERIA,URINE FEW /HPF (NOT SEEN); SQUAMOUS EPITHELIAL CELLS,UR FEW /HPF (NOT SEEN); WBC,URINE 20-30 /HPF (NOT SEEN)
[2024-02-26] MEDS: Acetaminophen 500 MG Tab PO ONE (21:27)
[2024-02-26] MEDS ORDERED: Morphine 2 MG/ML SYRINGE IVPUSH PRN (22:26)
[2024-02-26] MEDS: Sodium Chloride 0.9% 1,000 ML IV SCH (23:04)
[2024-02-26] MEDS: cefTRIAXone 1 GM Vial IVPUSH SCH (23:18)
[2024-02-27] MEDS: Carbidopa/Levodopa 10-100 MG Tab PO ONE (00:05)
[2024-02-27] MEDS: Propranolol 20 MG Tab PO STA (00:06)
[2024-02-27] MEDS ORDERED: Acetaminophen 325 MG Tab PO PRN (00:30)
[2024-02-27] MEDS: Levothyroxine 88 MCG Tab PO STA (01:47)
[2024-02-27] MEDS ORDERED: Non-Formulary Medication 1 Each (Glucagon [Gvoke Hypopen 1-Pack] 1 MG/0.2 ML Auto.Injct) IM PRN (01:53)
[2024-02-27] MEDS ORDERED: Polyethylene Glycol 3350 Powder 17 GM Packet PO PRN (01:53)
[2024-02-27] MEDS ORDERED: Diclofenac Sodium 1% Gel 100 GM Tube TOP PRN (01:53)
[2024-02-27] MEDS: Acetaminophen 325 MG Tab PO PRN (06:24)
[2024-02-27 08:10] LABS: EOSINOPHILS ABSOLUTE AUTO 0.3 x10^3/uL (0.0-0.5); EOSINOPHILS PERCENT AUTO 2.5 % (0.0-4.0); HEMATOCRIT 33.8 % (33.0-47.0); HEMOGLOBIN 10.7 g/dL (12.0-16.0); IMMATURE GRAN ABSOLUTE AUTO 0.02 x10^3/uL (0.00-0.07); LYMPHOCYTES ABSOLUTE AUTO 1.4 x10^3/uL (1.0-4.8); LYMPHOCYTES PERCENT AUTO 12.6 % (25.0-50.0); MEAN CORPUSCULAR HEMOGLOBIN 30.1 pg (26.0-32.0); MEAN CORPUSCULAR HGB CONC 31.7 g/dL (32.0-36.0); MEAN CORPUSCULAR VOLUME 94.9 fL (78.0-93.0); MONOCYTES ABSOLUTE AUTO 1.3 x10^3/uL (0.0-0.8); MONOCYTES PERCENT AUTO 11.2 % (2.0-11.0); NEUTROPHILS ABSOLUTE AUTO 8.2 x10^3/uL (1.8-7.7); NEUTROPHILS PERCENT AUTO 73.5 % (50.0-80.0); PLATELET COUNT,PLT 307 x10^3/uL (130-400); RED BLOOD CELL COUNT 3.56 x10^6/uL (4.00-5.50); WHITE BLOOD CELL COUNT,WBC 11.2 x10^3/uL (4.0-10.0)
[2024-02-27] MEDS: Aspirin 81 MG Tab.Chew PO SCH (08:19)
[2024-02-27] MEDS: Carbidopa/Levodopa 10-100 MG Tab PO SCH (08:19)
[2024-02-27] MEDS: Sennosides/Docusate Sodium 50-8.6 MG Tab PO SCH (08:19)
[2024-02-27 08:22] LABS: HEMOGLOBIN A1C 7.4 % (<5.7)
[2024-02-27] MEDS: Lisinopril 5 MG Tab PO SCH (08:26)
[2024-02-27] MEDS: Fluconazole 100 MG Tab PO SCH (08:27)
[2024-02-27] MEDS: Propranolol 20 MG Tab PO SCH (08:28)
[2024-02-27 08:44] LABS: A/G RATIO 0.46; ALBUMIN 2.3 g/dL (3.4-5.0); BILIRUBIN TOTAL 0.8 mg/dL (0.2-1.0); C-REACTIVE PROTEIN 11.83 mg/dL (<=0.50); CALCIUM 8.6 mg/dL (8.5-10.1); CREATININE 1.1 mg/dL (0.55-1.02); EST CRCL DRUG DOSING (CG) 42.27 mL/min; POTASSIUM,K 3.2 mmol/L (3.5-5.1); PROTEIN TOTAL,TP 7.3 g/dL (6.4-8.2); TSH ULTRASENSITIVE 1.103 uIU/mL (0.358-3.74)
[2024-02-27 08:47] LABS: ANION GAP 12.2 mmol/L (5-15)
[2024-02-27] MEDS: Potassium Chloride 20 MEQ Tab.ER PO ONE (09:32)
[2024-02-27] MEDS: Enoxaparin 100 MG/1 ML Syringe SUBCUT SCH (09:33)
[2024-02-27] MEDS: Iopamidol 612 MG/ML 100 ML Bottle IVPUSH ONE (15:13)
[2024-02-27] MEDS ORDERED: Enoxaparin 100 MG/1 ML Syringe SUBCUT SCH (20:00)
[2024-02-27] MEDS: Insulin Glarg,Human.Rec.Analog 100 Unit/ML 10 ML Vial SUBCUT SCH (20:36)
[2024-02-27] MEDS: Rosuvastatin 20 MG Tab PO SCH (20:36)
[2024-02-27] MEDS: Levothyroxine 88 MCG Tab PO SCH (20:39)
[2024-02-28 07:58] LABS: BASOPHILS PERCENT AUTO 0.1 % (0.2-1.2); EOSINOPHILS ABSOLUTE AUTO 0.4 x10^3/uL (0.0-0.5); EOSINOPHILS PERCENT AUTO 4.1 % (0.0-4.0); HEMATOCRIT 35.4 % (33.0-47.0); HEMOGLOBIN 11.3 g/dL (12.0-16.0); IMMATURE GRAN ABSOLUTE AUTO 0.01 x10^3/uL (0.00-0.07); LYMPHOCYTES ABSOLUTE AUTO 1.2 x10^3/uL (1.0-4.8); LYMPHOCYTES PERCENT AUTO 13.7 % (25.0-50.0); MEAN CORPUSCULAR HEMOGLOBIN 30.1 pg (26.0-32.0); MEAN CORPUSCULAR HGB CONC 31.9 g/dL (32.0-36.0); MEAN CORPUSCULAR VOLUME 94.4 fL (78.0-93.0); MONOCYTES ABSOLUTE AUTO 0.8 x10^3/uL (0.0-0.8); MONOCYTES PERCENT AUTO 8.6 % (2.0-11.0); NEUTROPHILS ABSOLUTE AUTO 6.6 x10^3/uL (1.8-7.7); NEUTROPHILS PERCENT AUTO 73.4 % (50.0-80.0); PLATELET COUNT,PLT 292 x10^3/uL (130-400); RED BLOOD CELL COUNT 3.75 x10^6/uL (4.00-5.50); WHITE BLOOD CELL COUNT,WBC 8.9 x10^3/uL (4.0-10.0)
[2024-02-28 08:23] LABS: A/G RATIO 0.47; ALBUMIN 2.1 g/dL (3.4-5.0); BILIRUBIN TOTAL 0.6 mg/dL (0.2-1.0); CALCIUM 8.5 mg/dL (8.5-10.1); CREATININE 0.9 mg/dL (0.55-1.02); EST CRCL DRUG DOSING (CG) 51.66 mL/min; POTASSIUM,K 3.9 mmol/L (3.5-5.1); PROTEIN TOTAL,TP 6.6 g/dL (6.4-8.2)
[2024-02-28 08:26] LABS: ANION GAP 12.9 mmol/L (5-15)
[2024-02-28] MEDS: Miconazole 2% Top Powder 45 GM Container TOP SCH (14:35)
[2024-02-28] MEDS: SEMAGLUTIDE 0.25 MG/0.4 ML SQ SCH (21:43)
[2024-02-29 06:22] LABS: BASOPHILS PERCENT AUTO 0.1 % (0.2-1.2); EOSINOPHILS ABSOLUTE AUTO 0.5 x10^3/uL (0.0-0.5); EOSINOPHILS PERCENT AUTO 5.5 % (0.0-4.0); HEMATOCRIT 33.5 % (33.0-47.0); HEMOGLOBIN 10.8 g/dL (12.0-16.0); IMMATURE GRAN ABSOLUTE AUTO 0.02 x10^3/uL (0.00-0.07); LYMPHOCYTES ABSOLUTE AUTO 1.1 x10^3/uL (1.0-4.8); LYMPHOCYTES PERCENT AUTO 12.2 % (25.0-50.0); MEAN CORPUSCULAR HEMOGLOBIN 30.3 pg (26.0-32.0); MEAN CORPUSCULAR HGB CONC 32.2 g/dL (32.0-36.0); MEAN CORPUSCULAR VOLUME 93.8 fL (78.0-93.0); MONOCYTES ABSOLUTE AUTO 0.8 x10^3/uL (0.0-0.8); MONOCYTES PERCENT AUTO 9.1 % (2.0-11.0); NEUTROPHILS ABSOLUTE AUTO 6.5 x10^3/uL (1.8-7.7); NEUTROPHILS PERCENT AUTO 72.9 % (50.0-80.0); PLATELET COUNT,PLT 276 x10^3/uL (130-400); RED BLOOD CELL COUNT 3.57 x10^6/uL (4.00-5.50); WHITE BLOOD CELL COUNT,WBC 8.9 x10^3/uL (4.0-10.0)
[2024-02-29 06:43] LABS: A/G RATIO 0.47; ANION GAP 10.9 mmol/L (5-15); BILIRUBIN TOTAL 0.5 mg/dL (0.2-1.0); CALCIUM 8.5 mg/dL (8.5-10.1); CREATININE 0.8 mg/dL (0.55-1.02); EST CRCL DRUG DOSING (CG) 58.12 mL/min; POTASSIUM,K 3.9 mmol/L (3.5-5.1); PROTEIN TOTAL,TP 6.3 g/dL (6.4-8.2)
[2024-02-29 09:55] VITALS: BP 158/64; PULSE 77
[2024-02-29] MEDS ORDERED: Cephalexin 250 MG Cap PO SCH (13:00)
[2024-03-01 05:06] LABS: % TRANSFERRIN SAT 12.4 % (20.0-50.0)
== END 2024-02-29 11:00 | disposition swing bed (61) | DRG 690 ==
LOC: VM.ED 19:49 → VM.MS 22:18
PROVIDERS: ADMIT Nurse Practitioner Family; ATTEND Internal Medicine
DX: R53.1 Weakness (principal); N30.00 Acute cystitis without hematuria; Z68.43 Body mass index [BMI] 50.0-59.9, adult; N17.9 Acute kidney failure, unspecified; E44.1 Mild protein-calorie malnutrition; E03.9 Hypothyroidism, unspecified; I10 Essential (primary) hypertension; E66.01 Morbid (severe) obesity due to excess calories; E11.319 Type 2 diabetes mellitus with unspecified diabetic retinopathy without macular edema; G89.29 Other chronic pain; M54.9 Dorsalgia, unspecified; Z79.84 Long term (current) use of oral hypoglycemic drugs; E86.0 Dehydration; K59.00 Constipation, unspecified; L30.4 Erythema intertrigo; E78.00 Pure hypercholesterolemia, unspecified; M17.0 Bilateral primary osteoarthritis of knee; G20.A1 Parkinson's disease without dyskinesia, without mention of fluctuations; M16.11 Unilateral primary osteoarthritis, right hip; M19.012 Primary osteoarthritis, left shoulder; Z88.8 Allergy status to other drugs, medicaments and biological substances; Z79.4 Long term (current) use of insulin; Z79.82 Long term (current) use of aspirin; Z86.16 Personal history of COVID-19; Z79.890 Hormone replacement therapy; Z79.899 Other long term (current) drug therapy; Z90.89 Acquired absence of other organs; Z98.890 Other specified postprocedural states; Z98.49 Cataract extraction status, unspecified eye
CPT/HCPCS: 80053; 81001; 83605; 83690; 84484; 85025; 87086; 93005; 96361; 96374; 99285; A9270; J1885; J7030; 36415; 74177; 82728; 82947; 83036; 83540; 83550; 84443; 86140; 93010; 99284; J0696; J1650; J1815-GY; Q9967

== ENCOUNTER 2024-02-29 09:14 | Inpatient (IN) | payer MEDICARE, BC ==
[2024-02-29] MEDS ORDERED: Glucagon,Human Recombinant 1 MG Vial IM PRN (10:11)
[2024-02-29] MEDS ORDERED: Polyethylene Glycol 3350 Powder 17 GM Packet PO PRN (10:11)
[2024-02-29] MEDS ORDERED: Diclofenac Sodium 1% Gel 100 GM Tube TOP PRN (10:11)
[2024-02-29] MEDS ORDERED: 50% Dextrose in Water 50 ML Syringe IVPUSH PRN (10:11)
[2024-02-29] MEDS: Cephalexin 250 MG Cap PO SCH (12:51)
[2024-02-29] MEDS: DULoxetine 20 MG Cap PO SCH (12:51)
[2024-02-29] MEDS: Diclofenac Sodium 1% Gel 100 GM Tube TOP SCH (12:53)
[2024-02-29] MEDS: Enoxaparin 30 MG/0.3 ML Syringe SUBCUT SCH (12:54)
[2024-02-29] MEDS: Sennosides/Docusate Sodium 50-8.6 MG Tab PO SCH (20:39)
[2024-02-29] MEDS: Carbidopa/Levodopa 10-100 MG Tab PO SCH (20:39)
[2024-02-29] MEDS: Propranolol 20 MG Tab PO SCH (20:40)
[2024-02-29] MEDS: Rosuvastatin 20 MG Tab PO SCH (20:41)
[2024-02-29] MEDS: Levothyroxine 88 MCG Tab PO SCH (20:42)
[2024-02-29] MEDS: Insulin Glarg,Human.Rec.Analog 100 Unit/ML 10 ML Vial SUBCUT SCH (20:42)
[2024-02-29] MEDS: Miconazole 2% Top Powder 45 GM Container TOP SCH (20:46)
[2024-03-01] MEDS: Lisinopril 5 MG Tab PO SCH (08:19)
[2024-03-01] MEDS: Fluconazole 100 MG Tab PO SCH (08:22)
[2024-03-01] MEDS: Aspirin 81 MG Tab.EC PO SCH (08:23)
[2024-03-01] MEDS: Polyethylene Glycol 3350 Powder 17 GM Packet PO SCH (08:24)
[2024-03-01] MEDS: Acetaminophen 325 MG Tab PO PRN (08:27)
[2024-03-04] MEDS ORDERED: Diclofenac Sodium 1% Gel 100 GM Tube TOP PRN (16:33)
[2024-03-04] MEDS: Sennosides/Docusate Sodium 50-8.6 MG Tab PO SCH (20:45)
[2024-03-07 06:48] LABS: BASOPHILS PERCENT AUTO 0.2 % (0.2-1.2); EOSINOPHILS ABSOLUTE AUTO 0.4 x10^3/uL (0.0-0.5); EOSINOPHILS PERCENT AUTO 3.8 % (0.0-4.0); HEMATOCRIT 33.2 % (33.0-47.0); HEMOGLOBIN 10.5 g/dL (12.0-16.0); IMMATURE GRAN ABSOLUTE AUTO 0.03 x10^3/uL (0.00-0.07); LYMPHOCYTES ABSOLUTE AUTO 1.4 x10^3/uL (1.0-4.8); LYMPHOCYTES PERCENT AUTO 13.7 % (25.0-50.0); MEAN CORPUSCULAR HEMOGLOBIN 30.4 pg (26.0-32.0); MEAN CORPUSCULAR HGB CONC 31.6 g/dL (32.0-36.0); MEAN CORPUSCULAR VOLUME 96.2 fL (78.0-93.0); MONOCYTES ABSOLUTE AUTO 0.8 x10^3/uL (0.0-0.8); MONOCYTES PERCENT AUTO 7.6 % (2.0-11.0); NEUTROPHILS ABSOLUTE AUTO 7.5 x10^3/uL (1.8-7.7); NEUTROPHILS PERCENT AUTO 74.4 % (50.0-80.0); PLATELET COUNT,PLT 387 x10^3/uL (130-400); RED BLOOD CELL COUNT 3.45 x10^6/uL (4.00-5.50); WHITE BLOOD CELL COUNT,WBC 10.1 x10^3/uL (4.0-10.0)
[2024-03-07 06:57] LABS: CALCIUM 8.8 mg/dL (8.5-10.1); CREATININE 0.8 mg/dL (0.55-1.02); EST CRCL DRUG DOSING (CG) 58.12 mL/min; POTASSIUM,K 4.2 mmol/L (3.5-5.1)
[2024-03-07 07:00] LABS: ANION GAP 10.2 mmol/L (5-15)
[2024-03-07 11:12] VITALS: BP 141/65; PULSE 80
== END 2024-03-07 10:45 | disposition home or self-care (01) | DRG 948 ==
LOC: VM.MS 11:53
PROVIDERS: ADMIT Internal Medicine; ATTEND Internal Medicine
DX: R53.1 Weakness (principal); N39.0 Urinary tract infection, site not specified; N17.9 Acute kidney failure, unspecified; E44.1 Mild protein-calorie malnutrition; Z68.43 Body mass index [BMI] 50.0-59.9, adult; E11.9 Type 2 diabetes mellitus without complications; E03.9 Hypothyroidism, unspecified; E66.01 Morbid (severe) obesity due to excess calories; I10 Essential (primary) hypertension; L30.4 Erythema intertrigo; K59.09 Other constipation; B37.2 Candidiasis of skin and nail; E86.0 Dehydration; M16.11 Unilateral primary osteoarthritis, right hip; G20.A1 Parkinson's disease without dyskinesia, without mention of fluctuations; E78.5 Hyperlipidemia, unspecified; M17.4 Other bilateral secondary osteoarthritis of knee; M19.212 Secondary osteoarthritis, left shoulder; Z86.16 Personal history of COVID-19; Z79.4 Long term (current) use of insulin; Z79.890 Hormone replacement therapy; Z79.82 Long term (current) use of aspirin; Z79.899 Other long term (current) drug therapy
CPT/HCPCS: 36415; 73030-LT; 80048; 82947; 85025; 95851-GO; 97110-GP; 97116-GP; 97161-GP; 97165-GO; 97530-GO; 97535-GO; A9270-GY; J1650

== ENCOUNTER 2025-02-05 17:22 | Inpatient (IN) | payer MEDICARE, BC ==
[2025-02-05 18:09] LABS: BASOPHILS PERCENT AUTO 0.2 % (0.2-1.2); EOSINOPHILS ABSOLUTE AUTO 0.1 x10^3/uL (0.0-0.5); EOSINOPHILS PERCENT AUTO 0.8 % (0.0-4.0); HEMATOCRIT 41.8 % (33.0-47.0); HEMOGLOBIN 13.4 g/dL (12.0-16.0); IMMATURE GRAN ABSOLUTE AUTO 0.02 x10^3/uL (0.00-0.07); LYMPHOCYTES ABSOLUTE AUTO 0.9 x10^3/uL (1.0-4.8); LYMPHOCYTES PERCENT AUTO 8.1 % (25.0-50.0); MEAN CORPUSCULAR HEMOGLOBIN 30.5 pg (26.0-32.0); MEAN CORPUSCULAR HGB CONC 32.1 g/dL (32.0-36.0); MEAN CORPUSCULAR VOLUME 95.2 fL (78.0-93.0); MONOCYTES ABSOLUTE AUTO 0.5 x10^3/uL (0.0-0.8); MONOCYTES PERCENT AUTO 4.7 % (2.0-11.0); NEUTROPHILS ABSOLUTE AUTO 9.4 x10^3/uL (1.8-7.7); PLATELET COUNT,PLT 244 x10^3/uL (130-400); RED BLOOD CELL COUNT 4.39 x10^6/uL (4.00-5.50)
[2025-02-05 18:10] LABS: APPEARANCE,URINE SLIGHTLY CLOUDY (CLEAR); BILIRUBIN,URINE NEGATIVE (NEGATIVE); COLOR,URINE YELLOW (YELLOW); GLUCOSE,URINE NEGATIVE (NEGATIVE); KETONES,URINE NEGATIVE (NEGATIVE); LEUKOCYTE ESTERASE,URINE SMALL (NEGATIVE); NITRITE,URINE POSITIVE (NEGATIVE); OCCULT BLOOD,URINE TRACE-LYSED (NEGATIVE); PROTEIN,URINE 30 mg/dL (NEGATIVE); UROBILINOGEN,URINE 0.2 EU/dL (0.2)
[2025-02-05 18:18] LABS: BACTERIA,URINE MANY /HPF (NOT SEEN); RBC,URINE 0-5 /HPF (NOT SEEN); SQUAMOUS EPITHELIAL CELLS,UR FEW /HPF (NOT SEEN); WBC,URINE 20-30 /HPF (NOT SEEN)
[2025-02-05 18:23] LABS: INR 0.9 (0.9-1.1); PROTHROMBIN TIME 9.8 SEC (9.6-12.0)
[2025-02-05 18:28] LABS: LACTIC ACID 1.8 mmol/L (0.4-2.0)
[2025-02-05 18:39] LABS: A/G RATIO 0.68; ALANINE AMINOTRANSFERASE,ALT 19 U/L (14-59); ALKALINE PHOSPHATASE 130 U/L (46-116); ANION GAP 13.3 mmol/L (5-15); ASPARTATE AMNIOTRANSFERASE,AST 23 U/L (15-37); BILIRUBIN TOTAL 1.1 mg/dL (0.2-1.0); BLOOD UREA NITROGEN,BUN 19 mg/dL (7-18); C-REACTIVE PROTEIN < 0.50 mg/dL (<=0.50); CALCIUM 8.8 mg/dL (8.5-10.1); CARBON DIOXIDE,CO2 27 mmol/L (21-32); CHLORIDE,CL 105 mmol/L (98-107); CREATININE 0.8 mg/dL (0.55-1.02); ESTIMATED GFR 80 mL/min (>=60); GLUCOSE RANDOM 136 mg/dL (70-99); MAGNESIUM 2.1 mg/dL (1.8-2.4); POTASSIUM,K 4.3 mmol/L (3.5-5.1); PROTEIN TOTAL,TP 7.4 g/dL (6.4-8.2); SODIUM,NA 141 mmol/L (136-145)
[2025-02-05 18:40] LABS: ETHANOL BLOOD MEDICAL < 3 mg/dL (0-3)
[2025-02-05] MEDS: cefTRIAXone 1 GM Vial IVPUSH ONE (18:58)
[2025-02-05] MEDS: Lactated Ringers 1,000 ML IV SCH (19:00)
[2025-02-05] MEDS ORDERED: Ondansetron 4 MG/2 ML SDV IV PRN (21:59)
[2025-02-05] MEDS ORDERED: Diclofenac Sodium 1% Gel 100 GM Tube TOP PRN (22:04)
[2025-02-05] MEDS ORDERED: Glucagon,Human Recombinant 1 MG Vial IM PRN (22:08)
[2025-02-05] MEDS ORDERED: 50% Dextrose in Water 50 ML Syringe IVPUSH PRN (22:08)
[2025-02-05] MEDS: Miconazole 2% Top Powder 45 GM Container TOP SCH (22:50)
[2025-02-05] MEDS: oxyCODONE 5 MG Tab PO PRN (22:51)
[2025-02-05] MEDS: Carbidopa/Levodopa 10-100 MG Tab PO SCH (23:15)
[2025-02-05] MEDS: Sennosides/Docusate Sodium 50-8.6 MG Tab PO SCH (23:16)
[2025-02-05] MEDS: Propranolol 20 MG Tab PO SCH (23:16)
[2025-02-05] MEDS: Rosuvastatin 20 MG Tab PO SCH (23:16)
[2025-02-06] MEDS: Acetaminophen 325 MG Tab PO PRN (02:02)
[2025-02-06 06:53] LABS: BASOPHILS PERCENT AUTO 0.4 % (0.2-1.2); EOSINOPHILS ABSOLUTE AUTO 0.2 x10^3/uL (0.0-0.5); EOSINOPHILS PERCENT AUTO 1.8 % (0.0-4.0); HEMATOCRIT 39.1 % (33.0-47.0); HEMOGLOBIN 12.3 g/dL (12.0-16.0); IMMATURE GRAN ABSOLUTE AUTO 0.02 x10^3/uL (0.00-0.07); LYMPHOCYTES ABSOLUTE AUTO 1.4 x10^3/uL (1.0-4.8); LYMPHOCYTES PERCENT AUTO 12.3 % (25.0-50.0); MEAN CORPUSCULAR HEMOGLOBIN 30.1 pg (26.0-32.0); MEAN CORPUSCULAR HGB CONC 31.5 g/dL (32.0-36.0); MEAN CORPUSCULAR VOLUME 95.6 fL (78.0-93.0); MONOCYTES PERCENT AUTO 9.5 % (2.0-11.0); NEUTROPHILS ABSOLUTE AUTO 8.4 x10^3/uL (1.8-7.7); NEUTROPHILS PERCENT AUTO 75.8 % (50.0-80.0); PLATELET COUNT,PLT 242 x10^3/uL (130-400); RED BLOOD CELL COUNT 4.09 x10^6/uL (4.00-5.50)
[2025-02-06 07:08] LABS: CALCIUM 8.7 mg/dL (8.5-10.1); CREATININE 0.8 mg/dL (0.55-1.02); EST CRCL DRUG DOSING (CG) 59.72 mL/min; POTASSIUM,K 3.5 mmol/L (3.5-5.1)
[2025-02-06 07:09] LABS: ANION GAP 10.5 mmol/L (5-15)
[2025-02-06] MEDS: Enoxaparin 40 MG/0.4 ML Syringe SUBCUT SCH (08:24)
[2025-02-06] MEDS: Aspirin 81 MG Tab.Chew PO SCH (08:25)
[2025-02-06] MEDS: Lisinopril 5 MG Tab PO SCH (08:25)
[2025-02-06] MEDS: Insulin Lispro 100 Units/ML 3 ML Vial SUBCUT SCH ×2 (08:28→17:53)
[2025-02-06] MEDS: Insulin Glarg,Human.Rec.Analog 100 Unit/ML 10 ML Vial SUBCUT SCH (08:32)
[2025-02-06] MEDS: cefTRIAXone 1 GM Vial IVPUSH SCH (18:03)
[2025-02-06] MEDS: Levothyroxine 88 MCG Tab PO SCH (20:36)
[2025-02-07 07:22] LABS: BASOPHILS PERCENT AUTO 0.4 % (0.2-1.2); EOSINOPHILS ABSOLUTE AUTO 0.4 x10^3/uL (0.0-0.5); EOSINOPHILS PERCENT AUTO 5.5 % (0.0-4.0); HEMATOCRIT 36.6 % (33.0-47.0); HEMOGLOBIN 11.6 g/dL (12.0-16.0); IMMATURE GRAN ABSOLUTE AUTO 0.02 x10^3/uL (0.00-0.07); LYMPHOCYTES ABSOLUTE AUTO 1.7 x10^3/uL (1.0-4.8); LYMPHOCYTES PERCENT AUTO 21.5 % (25.0-50.0); MEAN CORPUSCULAR HEMOGLOBIN 30.4 pg (26.0-32.0); MEAN CORPUSCULAR HGB CONC 31.7 g/dL (32.0-36.0); MEAN CORPUSCULAR VOLUME 96.1 fL (78.0-93.0); MONOCYTES ABSOLUTE AUTO 0.7 x10^3/uL (0.0-0.8); MONOCYTES PERCENT AUTO 8.9 % (2.0-11.0); NEUTROPHILS ABSOLUTE AUTO 4.9 x10^3/uL (1.8-7.7); NEUTROPHILS PERCENT AUTO 63.4 % (50.0-80.0); PLATELET COUNT,PLT 230 x10^3/uL (130-400); RED BLOOD CELL COUNT 3.81 x10^6/uL (4.00-5.50); WHITE BLOOD CELL COUNT,WBC 7.7 x10^3/uL (4.0-10.0)
[2025-02-07 07:35] LABS: CALCIUM 8.4 mg/dL (8.5-10.1); CREATININE 0.8 mg/dL (0.55-1.02); EST CRCL DRUG DOSING (CG) 59.72 mL/min; POTASSIUM,K 3.9 mmol/L (3.5-5.1)
[2025-02-07 07:40] LABS: ANION GAP 9.9 mmol/L (5-15)
[2025-02-07] MEDS ORDERED: Sodium Chloride 0.9% 10 ML Syringe FLUSH PRN (09:08)
[2025-02-07] MEDS: Polyethylene Glycol 3350 Powder 17 GM Packet PO PRN (13:49)
[2025-02-08 06:58] LABS: BASOPHILS PERCENT AUTO 0.6 % (0.2-1.2); EOSINOPHILS ABSOLUTE AUTO 0.4 x10^3/uL (0.0-0.5); EOSINOPHILS PERCENT AUTO 6.3 % (0.0-4.0); HEMOGLOBIN 11.1 g/dL (12.0-16.0); IMMATURE GRAN ABSOLUTE AUTO 0.01 x10^3/uL (0.00-0.07); LYMPHOCYTES ABSOLUTE AUTO 1.4 x10^3/uL (1.0-4.8); LYMPHOCYTES PERCENT AUTO 20.5 % (25.0-50.0); MEAN CORPUSCULAR HEMOGLOBIN 30.3 pg (26.0-32.0); MEAN CORPUSCULAR HGB CONC 31.7 g/dL (32.0-36.0); MEAN CORPUSCULAR VOLUME 95.6 fL (78.0-93.0); MONOCYTES ABSOLUTE AUTO 0.7 x10^3/uL (0.0-0.8); MONOCYTES PERCENT AUTO 10.1 % (2.0-11.0); NEUTROPHILS ABSOLUTE AUTO 4.1 x10^3/uL (1.8-7.7); NEUTROPHILS PERCENT AUTO 62.3 % (50.0-80.0); PLATELET COUNT,PLT 219 x10^3/uL (130-400); RED BLOOD CELL COUNT 3.66 x10^6/uL (4.00-5.50); WHITE BLOOD CELL COUNT,WBC 6.6 x10^3/uL (4.0-10.0)
[2025-02-08 07:09] LABS: CALCIUM 8.4 mg/dL (8.5-10.1); CREATININE 0.6 mg/dL (0.55-1.02); EST CRCL DRUG DOSING (CG) 79.63 mL/min
[2025-02-09 06:50] LABS: BASOPHILS PERCENT AUTO 0.7 % (0.2-1.2); EOSINOPHILS ABSOLUTE AUTO 0.4 x10^3/uL (0.0-0.5); EOSINOPHILS PERCENT AUTO 6.6 % (0.0-4.0); HEMATOCRIT 35.9 % (33.0-47.0); HEMOGLOBIN 11.2 g/dL (12.0-16.0); IMMATURE GRAN ABSOLUTE AUTO 0.01 x10^3/uL (0.00-0.07); LYMPHOCYTES ABSOLUTE AUTO 1.4 x10^3/uL (1.0-4.8); LYMPHOCYTES PERCENT AUTO 23.6 % (25.0-50.0); MEAN CORPUSCULAR HGB CONC 31.2 g/dL (32.0-36.0); MEAN CORPUSCULAR VOLUME 96.2 fL (78.0-93.0); MONOCYTES ABSOLUTE AUTO 0.6 x10^3/uL (0.0-0.8); MONOCYTES PERCENT AUTO 9.5 % (2.0-11.0); NEUTROPHILS ABSOLUTE AUTO 3.6 x10^3/uL (1.8-7.7); NEUTROPHILS PERCENT AUTO 59.4 % (50.0-80.0); PLATELET COUNT,PLT 232 x10^3/uL (130-400); RED BLOOD CELL COUNT 3.73 x10^6/uL (4.00-5.50)
[2025-02-09] MEDS: Cefuroxime 250 MG Tab PO SCH (08:25)
[2025-02-09 11:04] VITALS: BP 139/58; PULSE 76
== END 2025-02-09 10:00 | DRG 690 ==
LOC: VM.ED 17:22 → VM.MS 20:02
PROVIDERS: ADMIT Internal Medicine; ATTEND Internal Medicine
DX: N30.00 Acute cystitis without hematuria (principal); Z68.42 Body mass index [BMI] 45.0-49.9, adult; E78.00 Pure hypercholesterolemia, unspecified; I10 Essential (primary) hypertension; K59.09 Other constipation; M54.9 Dorsalgia, unspecified; G89.29 Other chronic pain; E11.9 Type 2 diabetes mellitus without complications; Z79.890 Hormone replacement therapy; E03.9 Hypothyroidism, unspecified; E66.9 Obesity, unspecified; E86.0 Dehydration; L30.4 Erythema intertrigo; G20.A1 Parkinson's disease without dyskinesia, without mention of fluctuations; M17.9 Osteoarthritis of knee, unspecified; E78.5 Hyperlipidemia, unspecified; Z79.82 Long term (current) use of aspirin; Z79.4 Long term (current) use of insulin; Z88.8 Allergy status to other drugs, medicaments and biological substances; Z79.899 Other long term (current) drug therapy; Z90.49 Acquired absence of other specified parts of digestive tract; Z98.49 Cataract extraction status, unspecified eye; Z98.890 Other specified postprocedural states; Z86.16 Personal history of COVID-19
CPT/HCPCS: 36415; 71045; 72125; 72170; 73060-LT; 80048; 80053; 80307; 81001; 82947; 83605; 83735; 84443; 84484; 85025; 85610; 85730; 86140; 87040; 87086; 87088; 87186; 96361; 96374; 97110-GP; 97116-GP; 97161-GP; 97165-GO; 97535-GO; 99284; 99285-25; A9270-GY; J0696; J1650; J1815-GY; J7120; Q3014

== ENCOUNTER 2025-03-24 08:07 | Emergency (ER) | payer MEDICARE, BC ==
[2025-03-24 09:19] VITALS: BP 104/51; PULSE 77
== END 2025-03-24 09:57 | disposition home or self-care (01) ==
LOC: VM.ED 08:07
DX: S80.12XA Contusion of left lower leg, initial encounter (principal); M25.562 Pain in left knee; I10 Essential (primary) hypertension; E78.00 Pure hypercholesterolemia, unspecified; E11.9 Type 2 diabetes mellitus without complications; E03.9 Hypothyroidism, unspecified; Z79.899 Other long term (current) drug therapy; Z79.82 Long term (current) use of aspirin; Z79.890 Hormone replacement therapy; W18.39XA Other fall on same level, initial encounter; Y93.89 Activity, other specified
CPT/HCPCS: 73562-LT; 99282; 99284

== ENCOUNTER 2025-03-24 13:12 | Emergency (ER) | payer MEDICARE, BC ==
[2025-03-24 16:54] VITALS: BP 129/59; PULSE 81
== END 2025-03-24 15:29 | disposition home health service (06) ==
LOC: VM.ED 13:12
DX: M79.672 Pain in left foot (principal); R29.6 Repeated falls; I10 Essential (primary) hypertension; E78.00 Pure hypercholesterolemia, unspecified; E03.9 Hypothyroidism, unspecified; Z79.84 Long term (current) use of oral hypoglycemic drugs; Z79.82 Long term (current) use of aspirin; Z79.890 Hormone replacement therapy; Z79.899 Other long term (current) drug therapy; W18.39XA Other fall on same level, initial encounter; Y93.89 Activity, other specified
CPT/HCPCS: 73630-LT; 99282; 99284

== ENCOUNTER 2025-07-13 16:10 | Emergency (ER) | payer MEDICARE, BC ==
[2025-07-13 16:28] VITALS: BP 130/60; PULSE 81
[2025-07-13 17:03] LABS: BASOPHILS ABSOLUTE AUTO 0.0 x10^3/uL (0.0-0.2); BASOPHILS PERCENT AUTO 0.1 % (0.2-1.2); EOSINOPHILS ABSOLUTE AUTO 0.2 x10^3/uL (0.0-0.5); EOSINOPHILS PERCENT AUTO 1.7 % (0.0-4.0); IMMATURE GRAN ABSOLUTE AUTO 0.02 x10^3/uL (0.00-0.07); IMMATURE GRAN PERCENT AUTO 0.20 % (0.00-0.43); LYMPHOCYTES ABSOLUTE AUTO 0.6 x10^3/uL (1.0-4.8); LYMPHOCYTES PERCENT AUTO 5.3 % (25.0-50.0); MONOCYTES ABSOLUTE AUTO 0.7 x10^3/uL (0.0-0.8); MONOCYTES PERCENT AUTO 6.2 % (2.0-11.0); NEUTROPHILS ABSOLUTE AUTO 10.3 x10^3/uL (1.8-7.7); NEUTROPHILS PERCENT AUTO 86.5 % (50.0-80.0); PLATELET COUNT,PLT 244 x10^3/uL (130-400); RED BLOOD CELL COUNT 4.14 x10^6/uL (4.00-5.50); WHITE BLOOD CELL COUNT,WBC 11.9 x10^3/uL (4.0-10.0)
[2025-07-13 17:24] LABS: A/G RATIO 0.68; ALANINE AMINOTRANSFERASE,ALT 10.0 U/L (14-59); ASPARTATE AMNIOTRANSFERASE,AST 21.0 U/L (15-37); BILIRUBIN TOTAL 1.1 mg/dL (0.2-1.0); BLOOD UREA NITROGEN,BUN 22.0 mg/dL (7-18); CARBON DIOXIDE,CO2 29.0 mmol/L (21-32); CHLORIDE,CL 105.0 mmol/L (98-107); CREATININE 0.8 mg/dL (0.55-1.02); EST CRCL DRUG DOSING (CG) 58.88 mL/min; ESTIMATED GFR 79.0 mL/min (>=60); GLUCOSE RANDOM 144.0 mg/dL (70-99); POTASSIUM,K 3.8 mmol/L (3.5-5.1); PROTEIN TOTAL,TP 6.9 g/dL (6.4-8.2); SODIUM,NA 142.0 mmol/L (136-145)
[2025-07-13] MEDS: Take Home: traMADol 50 MG, 4 Tab Pack PO ONE (18:56)
== END 2025-07-13 18:57 | disposition home or self-care (01) ==
LOC: VM.ED 16:10
DX: S00.81XA Abrasion of other part of head, initial encounter (principal); I10 Essential (primary) hypertension; M19.90 Unspecified osteoarthritis, unspecified site; E66.9 Obesity, unspecified; E78.00 Pure hypercholesterolemia, unspecified; E11.9 Type 2 diabetes mellitus without complications; E03.9 Hypothyroidism, unspecified; Z68.42 Body mass index [BMI] 45.0-49.9, adult; Z88.8 Allergy status to other drugs, medicaments and biological substances; Z79.82 Long term (current) use of aspirin; Z79.890 Hormone replacement therapy; Z79.899 Other long term (current) drug therapy; Z79.4 Long term (current) use of insulin; W07.XXXA Fall from chair, initial encounter
CPT/HCPCS: 36415; 80053; 85025; 99284; A9270-GY

== ENCOUNTER 2025-07-15 07:15 | Inpatient (IN) | payer MEDICARE, BC ==
[2025-07-15 07:58] LABS: BASOPHILS ABSOLUTE AUTO 0.0 x10^3/uL (0.0-0.2); BASOPHILS PERCENT AUTO 0.1 % (0.2-1.2); EOSINOPHILS ABSOLUTE AUTO 0.3 x10^3/uL (0.0-0.5); EOSINOPHILS PERCENT AUTO 1.6 % (0.0-4.0); IMMATURE GRAN ABSOLUTE AUTO 0.02 x10^3/uL (0.00-0.07); IMMATURE GRAN PERCENT AUTO 0.10 % (0.00-0.43); LYMPHOCYTES ABSOLUTE AUTO 0.7 x10^3/uL (1.0-4.8); LYMPHOCYTES PERCENT AUTO 4.7 % (25.0-50.0); MONOCYTES ABSOLUTE AUTO 1.0 x10^3/uL (0.0-0.8); MONOCYTES PERCENT AUTO 6.8 % (2.0-11.0); NEUTROPHILS ABSOLUTE AUTO 13.2 x10^3/uL (1.8-7.7); NEUTROPHILS PERCENT AUTO 86.7 % (50.0-80.0); PLATELET COUNT,PLT 254 x10^3/uL (130-400); RED BLOOD CELL COUNT 4.15 x10^6/uL (4.00-5.50); WHITE BLOOD CELL COUNT,WBC 15.2 x10^3/uL (4.0-10.0)
[2025-07-15 08:06] LABS: APPEARANCE,URINE TURBID (CLEAR); GLUCOSE,URINE NEGATIVE (NEGATIVE); OCCULT BLOOD,URINE LARGE (NEGATIVE)
[2025-07-15 08:12] LABS: A/G RATIO 0.69; ALANINE AMINOTRANSFERASE,ALT 11.0 U/L (14-59); ASPARTATE AMNIOTRANSFERASE,AST 34.0 U/L (15-37); BILIRUBIN TOTAL 1.2 mg/dL (0.2-1.0); BLOOD UREA NITROGEN,BUN 27.0 mg/dL (7-18); CARBON DIOXIDE,CO2 29.0 mmol/L (21-32); CHLORIDE,CL 107.0 mmol/L (98-107); CREATININE 0.9 mg/dL (0.55-1.02); EST CRCL DRUG DOSING (CG) 50.23 mL/min; ESTIMATED GFR 69.0 mL/min (>=60); GLUCOSE RANDOM 158.0 mg/dL (70-99); POTASSIUM,K 4.1 mmol/L (3.5-5.1); PROTEIN TOTAL,TP 7.1 g/dL (6.4-8.2); SODIUM,NA 145.0 mmol/L (136-145)
[2025-07-15 08:22] LABS: SQUAMOUS EPITHELIAL CELLS,UR RARE /HPF (NOT SEEN)
[2025-07-15] MEDS ORDERED: Ondansetron 4 MG Tab.DIS PO PRN (10:54)
[2025-07-15] MEDS ORDERED: 50% Dextrose in Water 50 ML Syringe IVPUSH PRN (11:08)
[2025-07-15] MEDS: Miconazole 2% Top Powder 45 GM Container TOP SCH (13:33)
[2025-07-15] MEDS: Insulin Glarg,Human.Rec.Analog 100 Unit/ML 10 ML Vial SUBCUT SCH (21:04)
[2025-07-16 06:41] LABS: BLOOD UREA NITROGEN,BUN 27.0 mg/dL (7-18); CARBON DIOXIDE,CO2 27.0 mmol/L (21-32); CHLORIDE,CL 108.0 mmol/L (98-107); CREATININE 0.8 mg/dL (0.55-1.02); EST CRCL DRUG DOSING (CG) 58.88 mL/min; GLUCOSE RANDOM 142.0 mg/dL (70-99); POTASSIUM,K 3.5 mmol/L (3.5-5.1); SODIUM,NA 144.0 mmol/L (136-145)
[2025-07-16 06:42] LABS: BASOPHILS ABSOLUTE AUTO 0.0 x10^3/uL (0.0-0.2); BASOPHILS PERCENT AUTO 0.2 % (0.2-1.2); EOSINOPHILS ABSOLUTE AUTO 0.6 x10^3/uL (0.0-0.5); EOSINOPHILS PERCENT AUTO 6.4 % (0.0-4.0); IMMATURE GRAN ABSOLUTE AUTO 0.01 x10^3/uL (0.00-0.07); IMMATURE GRAN PERCENT AUTO 0.10 % (0.00-0.43); LYMPHOCYTES ABSOLUTE AUTO 1.5 x10^3/uL (1.0-4.8); LYMPHOCYTES PERCENT AUTO 16.4 % (25.0-50.0); MONOCYTES ABSOLUTE AUTO 0.9 x10^3/uL (0.0-0.8); MONOCYTES PERCENT AUTO 9.8 % (2.0-11.0); NEUTROPHILS ABSOLUTE AUTO 6.2 x10^3/uL (1.8-7.7); NEUTROPHILS PERCENT AUTO 67.1 % (50.0-80.0); PLATELET COUNT,PLT 218 x10^3/uL (130-400); RED BLOOD CELL COUNT 3.41 x10^6/uL (4.00-5.50); WHITE BLOOD CELL COUNT,WBC 9.2 x10^3/uL (4.0-10.0)
[2025-07-16 06:59] LABS: ESTIMATED GFR 79.0 mL/min (>=60)
[2025-07-18 05:07] LABS: URINE PROTEIN 131 mg/dL (1-14)
[2025-07-19 06:54] LABS: BASOPHILS ABSOLUTE AUTO 0.0 x10^3/uL (0.0-0.2); BASOPHILS PERCENT AUTO 0.5 % (0.2-1.2); EOSINOPHILS ABSOLUTE AUTO 0.5 x10^3/uL (0.0-0.5); EOSINOPHILS PERCENT AUTO 5.3 % (0.0-4.0); IMMATURE GRAN ABSOLUTE AUTO 0.02 x10^3/uL (0.00-0.07); IMMATURE GRAN PERCENT AUTO 0.20 % (0.00-0.43); LYMPHOCYTES ABSOLUTE AUTO 1.7 x10^3/uL (1.0-4.8); LYMPHOCYTES PERCENT AUTO 19.4 % (25.0-50.0); MONOCYTES ABSOLUTE AUTO 0.8 x10^3/uL (0.0-0.8); MONOCYTES PERCENT AUTO 9.2 % (2.0-11.0); NEUTROPHILS ABSOLUTE AUTO 5.7 x10^3/uL (1.8-7.7); NEUTROPHILS PERCENT AUTO 65.4 % (50.0-80.0); PLATELET COUNT,PLT 239 x10^3/uL (130-400); RED BLOOD CELL COUNT 3.68 x10^6/uL (4.00-5.50); WHITE BLOOD CELL COUNT,WBC 8.7 x10^3/uL (4.0-10.0)
[2025-07-19 07:18] LABS: A/G RATIO 0.57; ALANINE AMINOTRANSFERASE,ALT 14.0 U/L (14-59); ASPARTATE AMNIOTRANSFERASE,AST 19.0 U/L (15-37); BILIRUBIN TOTAL 0.7 mg/dL (0.2-1.0); BLOOD UREA NITROGEN,BUN 16.0 mg/dL (7-18); CARBON DIOXIDE,CO2 31.0 mmol/L (21-32); CHLORIDE,CL 104.0 mmol/L (98-107); CREATININE 0.6 mg/dL (0.55-1.02); EST CRCL DRUG DOSING (CG) 78.51 mL/min; GLUCOSE RANDOM 118.0 mg/dL (70-99); POTASSIUM,K 4.2 mmol/L (3.5-5.1); PROTEIN TOTAL,TP 5.8 g/dL (6.4-8.2); SODIUM,NA 141.0 mmol/L (136-145)
[2025-07-19 07:24] LABS: ESTIMATED GFR 97.0 mL/min (>=60)
[2025-07-19] MEDS: Sennosides/Docusate Sodium 50-8.6 MG Tab PO SCH (09:26)
[2025-07-19 14:51] VITALS: BP 118/53; PULSE 73
== END 2025-07-19 14:50 | disposition swing bed (61) | DRG 690 ==
LOC: VM.ED 07:15 → VM.MS 09:16
PROVIDERS: ADMIT Family Medicine; ATTEND Internal Medicine
DX: N30.00 Acute cystitis without hematuria (principal); R09.02 Hypoxemia; R53.1 Weakness; N39.0 Urinary tract infection, site not specified; Z68.42 Body mass index [BMI] 45.0-49.9, adult; B96.20 Unspecified Escherichia coli [E. coli] as the cause of diseases classified elsewhere; Z79.84 Long term (current) use of oral hypoglycemic drugs; B96.89 Other specified bacterial agents as the cause of diseases classified elsewhere; Z79.890 Hormone replacement therapy; G20.A1 Parkinson's disease without dyskinesia, without mention of fluctuations; E03.9 Hypothyroidism, unspecified; M19.90 Unspecified osteoarthritis, unspecified site; E11.9 Type 2 diabetes mellitus without complications; F32.A Depression, unspecified; F41.9 Anxiety disorder, unspecified; I10 Essential (primary) hypertension; K59.00 Constipation, unspecified; M54.9 Dorsalgia, unspecified; G89.29 Other chronic pain; L30.4 Erythema intertrigo; E86.0 Dehydration; E78.00 Pure hypercholesterolemia, unspecified; R51.9 Headache, unspecified; E66.01 Morbid (severe) obesity due to excess calories; W19.XXXA Unspecified fall, initial encounter; B35.4 Tinea corporis; Z88.8 Allergy status to other drugs, medicaments and biological substances; Z79.82 Long term (current) use of aspirin; Z79.899 Other long term (current) drug therapy; Z79.4 Long term (current) use of insulin; Z98.49 Cataract extraction status, unspecified eye; Z90.49 Acquired absence of other specified parts of digestive tract; Z98.890 Other specified postprocedural states
CPT/HCPCS: 36415; 71045; 71046; 80048; 80053; 81001; 82570; 82947; 83605; 83735; 84156; 84443; 85025; 87086; 87088; 87186; 93971-RT; 96374; 97110-GP; 97162-GP; 97165-GO; 97530-GP; 97535-GO; 99284; 99285-25; A9270-GY; J0696; J1650; J1815-GY; J7030

== ENCOUNTER 2025-07-19 09:58 | Inpatient (IN) | payer MEDICARE, BC ==
[2025-07-19] MEDS ORDERED: Ondansetron 4 MG Tab.DIS PO PRN (14:43)
[2025-07-19] MEDS ORDERED: 50% Dextrose in Water 50 ML Syringe IVPUSH PRN (14:43)
[2025-07-19] MEDS: Miconazole 2% Top Powder 45 GM Container TOP SCH (22:27)
[2025-07-19] MEDS: Sennosides/Docusate Sodium 50-8.6 MG Tab PO SCH (22:28)
[2025-07-19] MEDS: Insulin Glarg,Human.Rec.Analog 100 Unit/ML 10 ML Vial SUBCUT SCH (22:32)
[2025-07-21 06:47] LABS: BASOPHILS ABSOLUTE AUTO 0.0 x10^3/uL (0.0-0.2); BASOPHILS PERCENT AUTO 0.3 % (0.2-1.2); EOSINOPHILS ABSOLUTE AUTO 0.5 x10^3/uL (0.0-0.5); EOSINOPHILS PERCENT AUTO 5.6 % (0.0-4.0); IMMATURE GRAN ABSOLUTE AUTO 0.02 x10^3/uL (0.00-0.07); IMMATURE GRAN PERCENT AUTO 0.20 % (0.00-0.43); LYMPHOCYTES ABSOLUTE AUTO 1.3 x10^3/uL (1.0-4.8); LYMPHOCYTES PERCENT AUTO 15.1 % (25.0-50.0); MONOCYTES ABSOLUTE AUTO 0.8 x10^3/uL (0.0-0.8); MONOCYTES PERCENT AUTO 9.1 % (2.0-11.0); NEUTROPHILS ABSOLUTE AUTO 6.2 x10^3/uL (1.8-7.7); NEUTROPHILS PERCENT AUTO 69.7 % (50.0-80.0); PLATELET COUNT,PLT 263 x10^3/uL (130-400); RED BLOOD CELL COUNT 3.90 x10^6/uL (4.00-5.50); WHITE BLOOD CELL COUNT,WBC 8.9 x10^3/uL (4.0-10.0)
[2025-07-21 07:01] LABS: BLOOD UREA NITROGEN,BUN 20.0 mg/dL (7-18); CARBON DIOXIDE,CO2 31.0 mmol/L (21-32); CHLORIDE,CL 104.0 mmol/L (98-107); CREATININE 0.6 mg/dL (0.55-1.02); EST CRCL DRUG DOSING (CG) 78.51 mL/min; GLUCOSE RANDOM 125.0 mg/dL (70-99); POTASSIUM,K 4.4 mmol/L (3.5-5.1); SODIUM,NA 142.0 mmol/L (136-145)
[2025-07-21 07:02] LABS: ESTIMATED GFR 97.0 mL/min (>=60)
[2025-07-22] MEDS: Mineral Oil 133 ML BOTTLE RECTAL ONE (12:21)
[2025-07-25 06:44] LABS: BASOPHILS ABSOLUTE AUTO 0.0 x10^3/uL (0.0-0.2); BASOPHILS PERCENT AUTO 0.3 % (0.2-1.2); EOSINOPHILS ABSOLUTE AUTO 0.4 x10^3/uL (0.0-0.5); EOSINOPHILS PERCENT AUTO 4.6 % (0.0-4.0); IMMATURE GRAN ABSOLUTE AUTO 0.02 x10^3/uL (0.00-0.07); IMMATURE GRAN PERCENT AUTO 0.20 % (0.00-0.43); LYMPHOCYTES ABSOLUTE AUTO 1.3 x10^3/uL (1.0-4.8); LYMPHOCYTES PERCENT AUTO 13.2 % (25.0-50.0); MONOCYTES ABSOLUTE AUTO 0.8 x10^3/uL (0.0-0.8); MONOCYTES PERCENT AUTO 8.8 % (2.0-11.0); NEUTROPHILS ABSOLUTE AUTO 6.9 x10^3/uL (1.8-7.7); NEUTROPHILS PERCENT AUTO 72.9 % (50.0-80.0); PLATELET COUNT,PLT 249 x10^3/uL (130-400); RED BLOOD CELL COUNT 3.82 x10^6/uL (4.00-5.50); WHITE BLOOD CELL COUNT,WBC 9.5 x10^3/uL (4.0-10.0)
[2025-07-25 06:54] LABS: BLOOD UREA NITROGEN,BUN 24.0 mg/dL (7-18); CARBON DIOXIDE,CO2 30.0 mmol/L (21-32); CHLORIDE,CL 103.0 mmol/L (98-107); CREATININE 0.7 mg/dL (0.55-1.02); EST CRCL DRUG DOSING (CG) 67.29 mL/min; GLUCOSE RANDOM 117.0 mg/dL (70-99); POTASSIUM,K 4.4 mmol/L (3.5-5.1); SODIUM,NA 140.0 mmol/L (136-145)
[2025-07-25 06:55] LABS: ESTIMATED GFR 93.0 mL/min (>=60)
[2025-07-31 06:53] LABS: BASOPHILS ABSOLUTE AUTO 0.0 x10^3/uL (0.0-0.2); BASOPHILS PERCENT AUTO 0.5 % (0.2-1.2); EOSINOPHILS ABSOLUTE AUTO 0.4 x10^3/uL (0.0-0.5); EOSINOPHILS PERCENT AUTO 4.3 % (0.0-4.0); IMMATURE GRAN ABSOLUTE AUTO 0.01 x10^3/uL (0.00-0.07); IMMATURE GRAN PERCENT AUTO 0.10 % (0.00-0.43); LYMPHOCYTES ABSOLUTE AUTO 1.5 x10^3/uL (1.0-4.8); LYMPHOCYTES PERCENT AUTO 18.0 % (25.0-50.0); MONOCYTES ABSOLUTE AUTO 0.8 x10^3/uL (0.0-0.8); MONOCYTES PERCENT AUTO 9.2 % (2.0-11.0); NEUTROPHILS ABSOLUTE AUTO 5.8 x10^3/uL (1.8-7.7); NEUTROPHILS PERCENT AUTO 67.9 % (50.0-80.0); PLATELET COUNT,PLT 255 x10^3/uL (130-400); RED BLOOD CELL COUNT 3.94 x10^6/uL (4.00-5.50); WHITE BLOOD CELL COUNT,WBC 8.5 x10^3/uL (4.0-10.0)
[2025-07-31 07:07] LABS: BLOOD UREA NITROGEN,BUN 19.0 mg/dL (7-18); CARBON DIOXIDE,CO2 28.0 mmol/L (21-32); CHLORIDE,CL 106.0 mmol/L (98-107); CREATININE 0.6 mg/dL (0.55-1.02); EST CRCL DRUG DOSING (CG) 78.51 mL/min; GLUCOSE RANDOM 106.0 mg/dL (70-99); POTASSIUM,K 4.2 mmol/L (3.5-5.1); SODIUM,NA 141.0 mmol/L (136-145)
[2025-07-31 07:09] LABS: ESTIMATED GFR 97.0 mL/min (>=60)
[2025-07-31 09:10] LABS: APPEARANCE,URINE SLIGHTLY CLOUDY (CLEAR); GLUCOSE,URINE NEGATIVE (NEGATIVE); OCCULT BLOOD,URINE TRACE-INTACT (NEGATIVE)
[2025-07-31 09:20] LABS: SQUAMOUS EPITHELIAL CELLS,UR FEW /HPF (NOT SEEN)
[2025-08-01] MEDS: Amoxicillin/Clavulanate K 875-125 MG Tab PO SCH (14:41)
[2025-08-02 11:22] VITALS: BP 113/45; PULSE 76
== END 2025-08-02 10:30 | DRG 948 ==
LOC: VM.MS 14:52
PROVIDERS: ADMIT Internal Medicine; ATTEND Internal Medicine
DX: R53.1 Weakness (principal); Z68.42 Body mass index [BMI] 45.0-49.9, adult; N39.0 Urinary tract infection, site not specified; G20.A1 Parkinson's disease without dyskinesia, without mention of fluctuations; R29.6 Repeated falls; R53.81 Other malaise; M17.0 Bilateral primary osteoarthritis of knee; E03.9 Hypothyroidism, unspecified; E11.9 Type 2 diabetes mellitus without complications; B96.20 Unspecified Escherichia coli [E. coli] as the cause of diseases classified elsewhere; F43.20 Adjustment disorder, unspecified; F32.A Depression, unspecified; F41.9 Anxiety disorder, unspecified; L30.4 Erythema intertrigo; M79.89 Other specified soft tissue disorders; E78.00 Pure hypercholesterolemia, unspecified; S09.90XA Unspecified injury of head, initial encounter; I10 Essential (primary) hypertension; E66.01 Morbid (severe) obesity due to excess calories; Z88.8 Allergy status to other drugs, medicaments and biological substances; Z79.82 Long term (current) use of aspirin; Z91.81 History of falling; Z79.890 Hormone replacement therapy; Z79.4 Long term (current) use of insulin; Z79.1 Long term (current) use of non-steroidal anti-inflammatories (NSAID); Z79.84 Long term (current) use of oral hypoglycemic drugs; Z98.890 Other specified postprocedural states; Z98.49 Cataract extraction status, unspecified eye; Y93.9 Activity, unspecified; W18.30XA Fall on same level, unspecified, initial encounter; Y92.098 Other place in other non-institutional residence as the place of occurrence of the external cause
CPT/HCPCS: 36415; 73564-RT; 80048; 81001; 82947; 85025; 87086; 87088; 87186; 97110-GO; 97110-GP; 97116-GP; 97530-GP; 97535-GO; A9270-GY; J1815-GY